=== PATIENT | female | born 1980 | race Caucasian/White ===

== ENCOUNTER → 2016-11-02 | Outpatient (CLI) | payer OTHER ==
--- NOTE | 2016-11-02 09:53 | US ---
EXAMINATION TYPE: US abdomen complete DATE OF EXAM: 11/02/2016 9:41 AM COMPARISON: NONE CLINICAL HISTORY: R10.84 Generalized abdominal pain. EXAM MEASUREMENTS: Liver Length: 15.5 cm Gallbladder Wall: 0.3 cm CBD: 0.2 cm Spleen: 10.2 cm Right Kidney: 12.2 x 4.4 x 4.4 cm Left Kidney: 11.7 x 4.9 x 4.9 cm TECHNOLOGIST IMPRESSION: Pancreas: Tail obscured by overlying bowel gas Liver: wnl Gallbladder: wnl Evidence for sonographic Bynum's sign: No CBD: wnl Spleen: splenule noted measuring 1.3 x 1.2 x 1.3cm in splenic hilum. Right Kidney: inferior pole partially obscure by bowel gas, no hydro or mass identified Left Kidney: superior pole partially obscure by bowel gas, no hydro or mass identified Upper IVC: wnl Abd Aorta: portions visualized wnl, partially obscured by overlying bowel gas The liver is homogenous. The intrahepatic portion of the IVC and visualized abdominal aorta through the iliac bifurcation are within normal limits. There is no evidence of cholelithiasis. Common bile duct is unremarkable. The visualized portions of the pancreas are homogenous. Tail is obscured by o verlying bowel gas on images saved. The spleen is unremarkable. Kidneys are symmetric and free of h ydronephrosis. No renal lesions are seen on images saved. Portions of both kidneys are secured by ov erlying bowel gas. IMPRESSION: No significant finding is seen to account for patient's symptoms.
== END | disposition home or self-care (01) ==
LOC: RADUSWWP 08:59
PROVIDERS: ATTEND Internal Medicine Critical Care Medicine
DX: R10.84 Generalized abdominal pain (principal)
CPT/HCPCS: 76700

== ENCOUNTER → 2017-01-13 | Outpatient (CLI) | payer OTHER ==
--- NOTE | 2017-01-13 08:10 | MR ---
EXAMINATION TYPE: MR lumbar spine wo/w con DATE OF EXAM: 01/13/2017 7:35 AM COMPARISON: 03/24/2012 HISTORY: Low back pain, Prior surgery CONTRAST: The patient was injected with 20 mL intravenous MultiHance gadolinium contrast. Multiplanar, MultiSpin echo imaging of the lumbar spine was performed. L1-L2: Normal disc appearance without desiccation. No herniation, protrusion or disc bulging. No ca nal stenosis is present. Foramina are patent bilaterally. L2-L3: There is evidence of moderate disc desiccation. Posterior disc bulge with annular tear. No fra nk herniation. No evidence for central stenosis. Foramina are patent bilaterally. L3-L4: Moderate to severe disc desiccation. Posterocentral disc herniation with a small extruded comp onent not excluded. There is effacement of the ventral thecal sac with right lateral recess stenosis. There is no evidence for central stenosis. Mild right foraminal encroachment noted. L4-L5: Moderate to severe disc desiccation. Changes of right hemilaminectomy. Small right paracentral disc herniation. Enhancing granulation tissue seen. No evidence for central stenosis. Facet joint ar thropathy with mild bilateral foraminal encroachment. L5-S1: Moderate to severe disc desiccation. There is left paracentral disc herniation seen resulting in left lateral recess stenosis. Left foraminal encroachment identified. No evidence for central orion nosis. Lumbar segments are intact. No paraspinal masses are identified. Conus medullaris has a normal appe arance. IMPRESSION: 1. Multilevel degenerative disc disease. 2. New disc herniations at L3-4, L4-5 and L5-S1.
== END | disposition home or self-care (01) ==
LOC: RADMRIMAIN 06:43
PROVIDERS: ATTEND Orthopaedic Surgery Orthopaedic Surgery of the Spine
DX: M51.26 Other intervertebral disc displacement, lumbar region (principal); M51.36 Other intervertebral disc degeneration, lumbar region; M51.27 Other intervertebral disc displacement, lumbosacral region; M54.16 Radiculopathy, lumbar region
CPT/HCPCS: 72158; A9577

== ENCOUNTER → 2017-04-28 | Outpatient (CLI) | payer OTHER ==
[2017-04-28 10:12] LABS: Cholesterol 197 mg/dL (<200); Glucose 81 mg/dL (74-99); HDL Cholesterol 64 mg/dL (40-60)
[2017-04-28 12:33] LABS: Hemoglobin A1C 5.4 % (4.2-6.1)
== END | disposition home or self-care (01) ==
LOC: LABWHC1 08:41
PROVIDERS: ATTEND Internal Medicine Critical Care Medicine
DX: Z00.00 Encounter for general adult medical examination without abnormal findings (principal)
CPT/HCPCS: 36415; 80061; 82947; 83036

== ENCOUNTER → 2018-02-07 | Outpatient (CLI) | payer OTHER ==
[2018-02-07 12:24] LABS: Basophils % (A) 0 %; Eosinophils # (A) 0.1 k/uL (0-0.7); Eosinophils % (A) 1 %; HCT 40.5 % (34.0-46.0); HGB 13.5 gm/dL (11.4-16.0); Lymphocytes # (A) 2.2 k/uL (1.0-4.8); Lymphocytes % (A) 25 %; MCH 30.1 pg (25.0-35.0); MCHC 33.4 g/dL (31.0-37.0); Mean Platelet Volume 7.6; Monocytes # (A) 0.4 k/uL (0-1.0); Monocytes % (A) 4 %; Neutrophils # (A) 6.1 k/uL (1.3-7.7); Neutrophils % (A) 69 %; Platelet Count 225 k/uL (150-450); RDW 13.7 % (11.5-15.5); WBC 8.9 k/uL (3.8-10.6)
== END | disposition home or self-care (01) ==
LOC: LABWHC1 11:35
PROVIDERS: ATTEND Internal Medicine Critical Care Medicine
DX: R53.1 Weakness (principal)
CPT/HCPCS: 36415; 85025

== ENCOUNTER → 2018-02-15 | Outpatient (CLI) | payer OTHER ==
[2018-02-15 08:27] LABS: Basophils # (A) 0.1 k/uL (0-0.2); Basophils % (A) 1 %; Eosinophils # (A) 0.1 k/uL (0-0.7); Eosinophils % (A) 1 %; HCT 41.2 % (34.0-46.0); HGB 13.5 gm/dL (11.4-16.0); Lymphocytes # (A) 2.2 k/uL (1.0-4.8); Lymphocytes % (A) 29 %; MCH 30.1 pg (25.0-35.0); MCHC 32.8 g/dL (31.0-37.0); MCV 91.7 fL (80.0-100.0); Mean Platelet Volume 7.4; Monocytes # (A) 0.4 k/uL (0-1.0); Monocytes % (A) 5 %; Neutrophils # (A) 4.9 k/uL (1.3-7.7); Neutrophils % (A) 64 %; Platelet Count 221 k/uL (150-450); RBC 4.49 m/uL (3.80-5.40); RDW 13.7 % (11.5-15.5); WBC 7.7 k/uL (3.8-10.6)
[2018-02-15 09:26] LABS: Erythrocyte Sedimentation Rate 20 mm/hr (0-20)
[2018-02-15 09:34] LABS: ALT 31 U/L (9-52); AST 19 U/L (14-36); Albumin 3.9 g/dL (3.5-5.0); Alkaline Phosphatase 51 U/L (38-126); Anion Gap 9 mmol/L; Blood Urea Nitrogen 12 mg/dL (7-17); C Reactive Protein 7.7 mg/L (<10.0); Calcium 9.2 mg/dL (8.4-10.2); Carbon Dioxide 24 mmol/L (22-30); Chloride 106 mmol/L (98-107); Cholesterol 196 mg/dL (<200); Glucose 86 mg/dL (74-99); HDL Cholesterol 70 mg/dL (40-60); LDL Cholesterol,Calculated 104 mg/dL (0-99); Potassium 4.4 mmol/L (3.5-5.1); Sodium 139 mmol/L (137-145); Total Bilirubin 0.2 mg/dL (0.2-1.3); Total Protein 6.5 g/dL (6.3-8.2); Triglycerides 110 mg/dL (<150)
[2018-02-15 09:48] LABS: T4, Free (Free Thyroxine) 1.27 ng/dL (0.78-2.19)
[2018-02-15 20:05] LABS: Hemoglobin A1C 5.4 % (4.0-6.0)
== END | disposition home or self-care (01) ==
LOC: LABWHC1 07:56
PROVIDERS: ATTEND Internal Medicine Critical Care Medicine
DX: Z00.00 Encounter for general adult medical examination without abnormal findings (principal); F41.9 Anxiety disorder, unspecified; M51.9 Unspecified thoracic, thoracolumbar and lumbosacral intervertebral disc disorder; M54.9 Dorsalgia, unspecified; J45.909 Unspecified asthma, uncomplicated
CPT/HCPCS: 36415; 80053; 80061; 82306; 82533; 83036; 84439; 84443; 85025; 85652; 86140

== ENCOUNTER → 2018-02-23 | Outpatient (CLI) | payer OTHER ==
[~2018-02-23] MED LIST: COSYNTROPIN 0.25 MG VIAL IVP NR; SODIUM CHLORIDE 0.9% 500 ML in EMPTY BAG 1 BAG IV PRN
[2018-02-23 08:56] VITALS: BP 117/76; PULSE 76; RESP 16; TEMP 98.4
== END | disposition home or self-care (01) ==
LOC: PROCWHC3 08:29
PROVIDERS: ATTEND Internal Medicine Critical Care Medicine
DX: R79.9 Abnormal finding of blood chemistry, unspecified (principal)
CPT/HCPCS: 82533; 82024; 96374; J0834

== ENCOUNTER → 2018-03-13 | Outpatient (CLI) | payer OTHER | END | disposition home or self-care (01) | LOC: LABWHC1 08:25 | PROVIDERS: ATTEND Internal Medicine Critical Care Medicine | DX: Z32.00 Encounter for pregnancy test, result unknown (principal) | CPT/HCPCS: 36415; 84702 ==

== ENCOUNTER → 2018-08-01 | Outpatient (CLI) | payer OTHER | END | disposition home or self-care (01) | LOC: LABWHC1 08:53 | PROVIDERS: ATTEND Obstetrics & Gynecology | DX: Z36.9 Encounter for antenatal screening, unspecified (principal) | CPT/HCPCS: 36415; 82950 ==

== ENCOUNTER 2018-10-29 15:25 | Inpatient (IN) | payer OTHER ==
[2018-10-29] MEDS ORDERED: CITRIC ACID-SODIUM CITRATE 15 ML CUP PO ONE (16:07)
[2018-10-29] MEDS: LACTATED RINGERS 1,000 ML IV SCH (16:29)
[2018-10-29] MEDS ORDERED: ceFAZolin IN SWFI 2 GM/20 ML SYRINGE IVP ONE (16:30)
[2018-10-29 16:50] LABS: Basophils % (A) 0 %; Eosinophils # (A) 0.1 k/uL (0-0.7); Eosinophils % (A) 1 %; HCT 32.8 % (34.0-46.0); HGB 11.1 gm/dL (11.4-16.0); Lymphocytes % (A) 22 %; MCH 29.2 pg (25.0-35.0); MCHC 33.7 g/dL (31.0-37.0); MCV 86.7 fL (80.0-100.0); Mean Platelet Volume 8.1; Monocytes # (A) 0.4 k/uL (0-1.0); Monocytes % (A) 5 %; Neutrophils # (A) 6.3 k/uL (1.3-7.7); Neutrophils % (A) 71 %; Platelet Count 190 k/uL (150-450); RBC 3.79 m/uL (3.80-5.40); RDW 13.8 % (11.5-15.5)
[2018-10-29 16:53] VITALS: BMI 41.0
[2018-10-29] MEDS ORDERED: METOCLOPRAMIDE 5 MG/ML 2 ML VIAL ONE (17:28)
[2018-10-29] MEDS ORDERED: DEXAMETHASONE SOD PHOS (MDV) 100 MG/10 ML VIAL ONE (17:28)
[2018-10-29] MEDS ORDERED: OXYTOCIN 10 UNIT/ML 1 ML VIAL ONE (17:28)
[2018-10-29] MEDS ORDERED: MORPHINE SULFATE (PF) 0.3 MG/0.3 ML SYR ONE (17:28)
[2018-10-29] MEDS ORDERED: NALBUPHINE 10 MG/ML (1 ML AMP) ONE (17:28)
[2018-10-29] MEDS ORDERED: ONDANSETRON 4 MG/2 ML VIAL ONE (17:28)
[2018-10-29] MEDS ORDERED: METOCLOPRAMIDE 5 MG/ML 2 ML VIAL IVP PRN (18:12)
[2018-10-29] MEDS ORDERED: OXYTOCIN 20 UNITS/1000 ML NS 1,000 ML IV SCH (18:12)
[2018-10-29] MEDS ORDERED: ACETAMINOPHEN IV (For NPO) 1,000 MG in EMPTY BAG 1 BAG IVPB ONE (18:12)
[2018-10-29] MEDS ORDERED: ZOLPIDEM 5 MG TAB PO PRN (18:12)
[2018-10-29] MEDS ORDERED: diphenhydrAMINE 50 MG CAP PO PRN (18:12)
[2018-10-29] MEDS ORDERED: ONDANSETRON 4 MG/2 ML VIAL IVP PRN (18:12)
[2018-10-29] MEDS ORDERED: NALOXONE 0.4 MG/ML 1 ML VIAL IV PRN (18:12)
[2018-10-29] MEDS ORDERED: diphenhydrAMINE 50 MG/ML 1 ML VIAL IVP PRN ×2 (18:12)
[2018-10-29] MEDS ORDERED: ACETAMINOPHEN TAB 325 MG TAB PO PRN (18:12)
--- NOTE | 2018-10-29 18:28 | P.OP ---
Date of Procedure: 10/29/18 Preoperative Diagnosis: IUP at 39 and 1/sevenths weeks, history of 1 desires repeat, spontaneous rupture of membranes, meconium-stained fluid Postoperative Diagnosis: Same Procedure(s) Performed: Repeat section Anesthesia: spinal Surgeon: Lulu Pack Seed Laboratory Assistant #1: Blanca Quispe Estimated Blood Loss (ml): 500 IV fluids (ml): 1,000 Urine output (ml): 900 Pathology: none sent Condition: stable Disposition: observation Indications for Procedure: History of x 1 desires repeat Operative Findings: Normal uterus tubes and ovaries were appreciated English was draining clear yellow urine throughout the procedure Description of Procedure: The patient was prepped and draped in the usual fashion after spinal anesthesia was administered. A Pfannenstiel incision was made and extended of the abdominal cavity without difficulty. The bladder peritoneum was elevated and incised and reflected distally. A 2 cm incision was made in the transverse plane of the lower uterine segment to enter the uterus at which time clear fluid was noted. The incision was extended in both directions using the bandage scissors. The head was encountered within the field and delivered up and through the incision where the nose and mouth were thoroughly suctioned. Remainder of the infant was delivered onto the surgical field where the cord was doubly clamped, cut, and the was passed for resuscitative measures with weight 7-13 and Apgars 8-9 at one and 5 minutes respectively. The placenta was delivered manually, intact, and was grossly normal with a grossly normal three-vessel cord. The uterus was exteriorized and the interior cavity of the uterus swept of any remaining placental and membranous fragments with a laparotomy sponge. The margins of the incision were grasped with Duarte clamps and the incision closed in 2 layers. First layer was a running locking layer of 0 vicryl from margin to margin followed by a second layer of imbricating 0 vicryl from margin to margin. Any small points of bleeding were then made hemostatic with the Bovie. Once hemostasis was achieved , the posterior cul-de-sac was suctioned with a guard and the uterine and ovarian findings are as noted above. The uterus was replaced within the abdominal cavity and the gutters swept of any remaining blood fluid or clot. The incision was again reexamined and hemostasis was noted to be excellent. Any small point of bleeding were made hemostatic with the Bovie. Once hemostasis was achieved the parietal peritoneum was loosely reapproximated. The layer of muscles were examined and made hemostatic with the Bovie. Attention was then turned to the fascia which was closed with 2 running stitches of 0 Vicryl proceeding from the lateral margins to the midpoint. The subcutaneous tissues were irrigated, made hemostatic with the Bovie, and reapproximated with a running stitch of 30 vicryl The skin was reapproximated with 4-0 vicryl. Estimated blood loss for the case was approximately 500 mL. All sponge instrument and needle counts are correct. There were no complications. The patient tolerated the procedure well and proceeded to the recovery room in stable condition. Both mother and are resting comfortably in recovery.
--- NOTE | 2018-10-29 18:28 | P.HPOB ---
History of Present Illness H&P Date: 10/29/18 Chief Complaint: IUP @ 39 1/7 weeks, SROM This is a 38-year-old 2 para 1001 at 39 and one sevenths weeks that presents to labor and delivery with complaints of spontaneous rupture of membranes, meconium-stained fluid. Patient had SROM just before 1 PM today, and felt it appeared to be meconium stained. Patient was scheduled for a repeat section tomorrow 10/30 at noon. Patient is noting good movement denies contractions at this time. Patient has been receiving routine care with Dr. Resendiz, since the first trimester. Her prior done in the past was for arrest of 1st stage of labor, she has a history of asthma which is been well controlled with Qvar and Flonase on blood work her blood type is A+, rubella immune, hepatitis B surface antigen negative, HIV negative, RPR nonreactive, GBS was noted to be positive. Review of Systems Constitutional: Denies chills, Denies fatigue, Denies fever Cardiovascular: Reports leg edema Respiratory: Denies cough, Denies dyspnea Gastrointestinal: Denies constipation, Denies diarrhea, Denies nausea, Denies vomiting Genitourinary: Reports Past Medical History Past Medical History: Asthma, GERD/Reflux Additional Past Medical History / Comment(s): uti's during History of Any Multi-Drug Resistant Organisms: None Reported Past Surgical History: Section Additional Past Surgical History / Comment(s): lumbar laminectomy 2000-dr aparicio Past Anesthesia/Blood Transfusion Reactions: Postoperative Nausea & Vomiting ( PONV) Past Psychological History: Anxiety Smoking Status: Never smoker Past Alcohol Use History: None Reported Past Drug Use History: None Reported - Past Family History Mother Family Medical History: No Reported History Medications and Allergies Home Medications Medication Instructions Recorded Confirmed Type Beclomethasone Dipropionate [Qvar 2 puff INHALATION BID 10/27/18 10/29/18 History 80 mcg] Biotin 5,000 mcg PO DAILY 10/27/18 10/29/18 History Cholecalciferol [Vitamin D3] 1,000 unit PO DAILY 10/27/18 10/29/18 History Cyanocobalamin (Vitamin B-12) 500 mcg PO DAILY 10/27/18 10/29/18 History [Vitamin B-12] Fluticasone Nasal [place] [Flonase 2 spr EA NOSTRIL DAILY 10/27/18 10/29/18 History Nasal [place]] Zcp-Ygab-Jtwni Acid 1 cap PO DAILY 10/27/18 10/29/18 History [-U Capsule (formulary)] Allergies Allergy/AdvReac Type Severity Reaction Status Date / Time adhesive tape Allergy Rash/Hives Verified 10/27/18 10:38 egg Allergy Rash/Hives Verified 02/23/18 08:36 Penicillins Allergy Unknown Verified 02/23/18 08:35 tegaderm Allergy "leaves Uncoded 10/27/18 10:38 whelts" Exam Osteopathic Statement: *. No significant issues noted on an osteopathic structural exam other than those noted in the History and Physical/Consult. Vital Signs Temp Pulse Resp BP Pulse Ox 10/29/18 16:27 97.5 F L 88 18 119/68 10/29/18 16:00 97.5 F L 88 18 119/68 97 Intake and Output 10/29/18 10/29/18 10/29/18 06:59 14:59 22:59 Other: Weight 118.841 kg Targeted physical exam is performed on this date in general this a well- nourished well-developed female in no acute distress. Her breathing is noted to be nonlabored and her lungs are clear to auscultation bilaterally the heart is known to have a regular rate and rhythm her abdomen is noted to be gravid and appropriate for gestational age heart tones were noted to be category 1 and reassuring, on cervical exam per RN 1/thick/high Results Result Diagrams: 10/29/18 16:26 Abnormal Lab Results - Last 24 Hours (Table) 10/29/18 Range/Units 16:26 RBC 3.79 L (3.80-5.40) m/uL Hgb 11.1 L (11.4-16.0) gm/dL Hct 32.8 L (34.0-46.0) % Assessment and Plan (1) Term Current Visit: Yes Status: Acute Code(s): Z34.80 - ENCOUNTER FOR SUPRVSN OF NORMAL , UNSP TRIMESTER SNOMED Code(s): 83123466 (2) Positive GBS test Current Visit: Yes Status: Acute Code(s): B95.1 - STREPTOCOCCUS, GROUP B, CAUSING DISEASES CLASSD ELSWHR SNOMED Code(s): 6326503016568 (3) H/O section Current Visit: Yes Status: Acute Code(s): Z98.891 - HISTORY OF UTERINE SCAR FROM PREVIOUS SURGERY SNOMED Code(s): 062883444
[2018-10-29] MEDS ORDERED: IBUPROFEN IV 800 MG in SODIUM CHLORIDE 0.9% 250 ML IV ONE (18:29)
[2018-10-30] MEDS: diphenhydrAMINE 25 MG CAP PO PRN ×3 (02:27→21:44)
[2018-10-30] MEDS: LACTATED RINGERS 1,000 ML IV SCH ×3 (04:30→20:51)
[2018-10-30 06:40] LABS: Basophils % (A) 0 %; Eosinophils % (A) 0 %; HCT 30.7 % (34.0-46.0); HGB 9.9 gm/dL (11.4-16.0); Lymphocytes # (A) 1.8 k/uL (1.0-4.8); Lymphocytes % (A) 17 %; MCH 28.6 pg (25.0-35.0); MCHC 32.3 g/dL (31.0-37.0); MCV 88.6 fL (80.0-100.0); Mean Platelet Volume 9.7; Monocytes # (A) 0.4 k/uL (0-1.0); Monocytes % (A) 4 %; Neutrophils % (A) 78 %; Platelet Count 147 k/uL (150-450); RBC 3.47 m/uL (3.80-5.40); RDW 13.9 % (11.5-15.5); WBC 10.3 k/uL (3.8-10.6)
[2018-10-30] MEDS: SENNOSIDES-DOCUSATE SODIUM 1 EACH TAB PO SCH ×3 (07:59→21:41)
--- NOTE | 2018-10-30 10:36 | P.PNOBGPC ---
Subjective - Subjective Principal diagnosis: Repeat section Interval history: Septae 1. Reports feeling somewhat dizzy yesterday evening, this is improved this morning. She has been able to void spontaneously without difficulty. She reports her pain is well-controlled that she is feeling itchy. Patient reports: Reports appetite normal, Reports voiding normally, Reports pain well controlled, Reports ambulating normally, Denies dizzy ambulation, Denies nauseated [place]: doing well Objective - Vital Signs Latest vital signs: Vital Signs Temp Pulse Resp BP Pulse Ox 10/30/18 08:00 97.6 F 72 16 92/50 10/30/18 04:00 97.3 F L 64 16 97/53 98 10/29/18 20:17 96.3 F L 50 L 16 113/63 97 10/29/18 19:49 97.9 F 51 L 16 119/59 10/29/18 19:19 97.6 F 55 L 16 109/53 97 10/29/18 19:03 64 18 106/56 97 10/29/18 18:49 67 18 103/55 95 10/29/18 18:34 64 18 108/58 96 10/29/18 18:30 95.9 F L 69 18 108/72 97 10/29/18 16:27 97.5 F L 88 18 119/68 10/29/18 16:00 97.5 F L 88 18 119/68 97 Intake and Output 10/29/18 10/30/18 10/30/18 22:59 06:59 14:59 Intake Total 300 Output Total 800 250 400 Balance -800 50 -400 Intake: Oral 300 Output: Urine 800 250 400 Other: Voiding Method Indwelling Catheter Weight 118.841 kg - Exam Extremities: Present: normal. Absent: edema Abdomen: Present: normal appearance, soft. Absent: tenderness Incision: Present: normal, dry, intact. Absent: erythematous Uterus: Present: normal, firm - Labs Labs: Abnormal Lab Results - Last 24 Hours (Table) 10/29/18 10/30/18 Range/Units 16:26 06:29 RBC 3.79 L 3.47 L (3.80-5.40) m/uL Hgb 11.1 L 9.9 L (11.4-16.0) gm/dL Hct 32.8 L 30.7 L (34.0-46.0) % Plt Count 147 L (150-450) k/uL Neutrophils # 8.0 H (1.3-7.7) k/uL Assessment and Plan (1) Asthma Narrative/Plan: Reports breathing very well. No wheezing and declines consultation with her rand butting machine operator Dr. Sheffield. Current Visit: Yes Status: Acute Code(s): J45.909 - UNSPECIFIED ASTHMA, UNCOMPLICATED SNOMED Code(s): 244413695 (2) H/O section Current Visit: Yes Status: Acute Code(s): Z98.891 - HISTORY OF UTERINE SCAR FROM PREVIOUS SURGERY SNOMED Code(s): 018776497 (3) Positive GBS test Current Visit: Yes Status: Acute Code(s): B95.1 - STREPTOCOCCUS, GROUP B, CAUSING DISEASES CLASSD [facility] SNOMED Code(s): 7115094073515 (4) Term Current Visit: Yes Status: Acute Code(s): Z34.80 - ENCOUNTER FOR SUPRVSN OF NORMAL , UNSP TRIMESTER SNOMED Code(s): 43483225 (5) Meconium in amniotic fluid Current Visit: Yes Status: Acute Code(s): P96.83 - MECONIUM STAINING SNOMED Code(s): 8065598 (6) Spontaneous rupture of membranes Current Visit: Yes Status: Acute Code(s): VNA0584 - SNOMED Code(s): 944479887 (7) Advanced maternal age (AMA) in Current Visit: Yes Status: Acute Code(s): UAG2571 - SNOMED Code(s): 200470838 Plan: Postop day 1 status post repeat low transverse section at 39+ weeks gestation. She is recovering very well. Asthma currently not an issue. Continue routine postoperative care.
--- NOTE | 2018-10-30 11:33 | P.PN ---
Progress Note - Text Progress Note Date: 10/30/18 Postoperative day 1 status post section under spinal anesthesia, and intrathecal morphine given for postoperative analgesia, patient doing well, there is no anesthesia related complications, Patient had no headache, vital signs stable , Assessment and plan= postop day 1 status post , doing well there is no anesthesia related complication.
[2018-10-30] MEDS: IBUPROFEN 600 MG TAB PO PRN ×2 (13:07→21:41)
[2018-10-30] MEDS: FLUTICASONE 110 MCG INHALER INHALATION SCH ×2 (20:50→20:51)
[2018-10-30] MEDS: FLUTICASONE 50MCG/SPRAY NASAL 16GM EA NOSTRIL SCH (20:51)
[2018-10-30] MEDS: PRENATAL VIT-IRON-FOLIC ACID 1 EACH CAP PO SCH (20:52)
[2018-10-31] MEDS: IBUPROFEN 600 MG TAB PO PRN ×3 (04:15→15:47)
[2018-10-31] MEDS: SENNOSIDES-DOCUSATE SODIUM 1 EACH TAB PO SCH (08:18)
--- NOTE | 2018-10-31 08:38 | P.DS ---
Providers Date of admission: 10/29/18 16:09 Expected date of discharge: 10/31/18 Attending physician: Anna Marie Resendiz Primary care physician: Stated None - Discharge Diagnosis(es) (1) Asthma Current Visit: Yes Status: Acute (2) H/O section Current Visit: Yes Status: Acute (3) Positive GBS test Current Visit: Yes Status: Acute (4) Term Current Visit: Yes Status: Acute (5) Meconium in amniotic fluid Current Visit: Yes Status: Acute (6) Spontaneous rupture of membranes Current Visit: Yes Status: Acute (7) Advanced maternal age (AMA) in Current Visit: Yes Status: Acute Hospital Course: This is a 38 year old 3 now para 2 woman who presented at 39+ weeks gestation with spontaneous rupture of membranes, not in labor. She has a previous low transverse section and was planning a repeat . She was admitted and rupture membranes was confirmed, meconium-stained fluid. status was reassuring. She went to the operating room where she underwent an unremarkable repeat low transverse section. Findings at the time of surgery were significant for a liveborn female infant weighing 7 lbs. 9 oz. No her the surgeon's observation and the nursing observation the patient did have some bruising of her inner thighs as well as upper arms. Her postoperative course was unremarkable. By postoperative day #1 her pain was well-controlled with oral pain medications and she was voiding without difficulty. Her diet was advanced slowly however she was able to tolerate a general diet by the evening of postoperative day #1. She had passed flatus. Her postoperative hemoglobin was 9.9. By postoperative day #2 she continued to do well, passing flatus and tolerating a general diet. Her incision appeared well healing and she had minimal lochia. Is documented in the record at 32 weeks the patient did have bruising and bite bob of the gravid abdomen. At that time the patient shared that it was consensual affectionate activity. No further bruising or signs of injury were observed by me at that time nor for the remainder of the . However nursing notes and the surgeon of record did note some bruising of the inner thighs and upper arms also possibly consistent with biting or injury. Upon my discussion with the patient in the presence of the father of the baby she reports these bruising were from "stuff around the house" and "sledding with her older daughter". I had a discussion with both the patient and the father of the baby regarding the appropriate demonstrations of affection not including biting. I spoke with them about close follow-up in the outpatient setting of both her infant and her older child. 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 Procedures: Repeat low transverse section Patient Condition at Discharge: Good Plan - Discharge Summary New Discharge Prescriptions: No Action Zrm-High-Ywweh Acid [-U Capsule (formulary)] 1 cap PO DAILY Fluticasone Nasal [place] [Flonase Nasal [place]] 2 spr EA NOSTRIL DAILY Cyanocobalamin (Vitamin B-12) [Vitamin B-12] 500 mcg PO DAILY Cholecalciferol [Vitamin D3] 1,000 unit PO DAILY Beclomethasone Dipropionate [Qvar 80 mcg] 2 puff INHALATION BID Biotin 5,000 mcg PO DAILY Discharge Medication List Beclomethasone Dipropionate [Qvar 80 mcg] 2 puff INHALATION BID 10/27/18 [ History] Biotin 5,000 mcg PO DAILY 10/27/18 [History] Cholecalciferol [Vitamin D3] 1,000 unit PO DAILY 10/27/18 [History] Cyanocobalamin (Vitamin B-12) [Vitamin B-12] 500 mcg PO DAILY 10/27/18 [History] Fluticasone Nasal [place] [Flonase Nasal [place]] 2 spr EA NOSTRIL DAILY 10/27/18 [ History] Wos-Blyy-Gimkr Acid [-U Capsule (formulary)] 1 cap PO DAILY 05/07 [History] Follow up Appointment(s)/Referral(s): Anna Marie Resendiz MD [STAFF PHYSICIAN] - 2 Weeks Activity/Diet/Wound Care/Special Instructions: Follow-up in the office to's weeks postoperatively or sooner with any concerning signs or symptoms. May use oywh-cww-czognhl ibuprofen 600 mg every 6 hours and or extra strength Tylenol every 6-8 hours as needed. Contact the office with any concerning signs or symptoms including heavy vaginal bleeding, foul vaginal discharge, redness or drainage of her incision, severe abdominal or pelvic pain, inability to have bowel movement, fever greater than 100.5, redness or swelling of the lower extremities.
[2018-10-31 09:17] VITALS: RESP 15
[2018-10-31] MEDS: FLUTICASONE 110 MCG INHALER INHALATION SCH (15:48)
[2018-10-31] MEDS: PRENATAL VIT-IRON-FOLIC ACID 1 EACH CAP PO SCH (15:48)
[2018-10-31] MEDS: FLUTICASONE 50MCG/SPRAY NASAL 16GM EA NOSTRIL SCH (15:48)
[2018-10-31 16:44] VITALS: BP 145/78; PULSE 69; TEMP 98.8
== END 2018-10-31 18:23 | disposition home or self-care (01) | DRG 788 ==
LOC: FBPOP 15:25 → 4FBP 16:09
PROVIDERS: ADMIT Obstetrics & Gynecology Obstetrics; ATTEND Obstetrics & Gynecology
PROC: 10D00Z1 Extraction of Products of Conception, Low, Open Approach (ICD-10-PCS; principal; 2018-10-29 17:28)
DX: O34.211 Maternal care for low transverse scar from previous cesarean delivery (principal); O77.0 Labor and delivery complicated by meconium in amniotic fluid; O99.344 Other mental disorders complicating childbirth; F41.9 Anxiety disorder, unspecified; O99.52 Diseases of the respiratory system complicating childbirth; J45.909 Unspecified asthma, uncomplicated; O99.62 Diseases of the digestive system complicating childbirth; K21.9 Gastro-esophageal reflux disease without esophagitis; O99.824 Streptococcus B carrier state complicating childbirth; O75.89 Other specified complications of labor and delivery; R42 Dizziness and giddiness; Z37.0 Single live birth; Z3A.39 39 weeks gestation of pregnancy; Z79.899 Other long term (current) drug therapy; Z91.012 Allergy to eggs; Z88.0 Allergy status to penicillin; Z88.8 Allergy status to other drugs, medicaments and biological substances; Z91.048 Other nonmedicinal substance allergy status
CPT/HCPCS: 59025; 85025; 86850; 86900; 86901; 99213

== ENCOUNTER → 2019-04-02 | Outpatient (CLI) | payer MEDICAID ==
--- NOTE | 2019-04-02 17:34 | MR ---
EXAMINATION TYPE: MR knee RT wo con DATE OF EXAM: 04/02/2019 COMPARISON: Plain film 03/26/2019 HISTORY: Pain in right knee TECHNIQUE: Multiplanar, multisequence imaging of the right knee is performed without IV contrast. FINDINGS: MEDIAL MENISCUS: Posterior horn of the medial meniscus shows stellate and linear increased signal whi ch extends to the articular surface LATERAL MENISCUS: Anterior and posterior horns are intact without tear. CRUCIATE LIGAMENTS: The anterior and posterior cruciate ligaments are intact and unremarkable. COLLATERAL LIGAMENTS: The medial collateral ligament and lateral collateral ligament complex are inta ct and unremarkable. EXTENSOR MECHANISM: Visualized quadriceps and patellar tendons are intact. EFFUSION: Minimal suprapatellar joint effusion POPLITEAL CYST: No popliteal/cesar cyst. 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 OTHER: Some minimal subcutaneous edema present in the prepatellar location IMPRESSION: Tear of the posterior horn of the medial meniscus.
== END | disposition home or self-care (01) ==
LOC: RADMRIMAIN 09:08
PROVIDERS: ATTEND Orthopaedic Surgery
DX: S83.241A Other tear of medial meniscus, current injury, right knee, initial encounter (principal)

== ENCOUNTER → 2019-04-13 | Outpatient (CLI) | payer MEDICAID ==
--- NOTE | 2019-04-13 10:19 | MM ---
Reason for exam: clinical finding. History: Patient had first child at age 35. Family history of breast cancer in grandmother. Taking hormonal contraceptives for 3 months. Indicated problem(s): palpable abnormality in the left breast. Physical Findings: Nurse Summary: 0.5 x 1cm nodule in the left breast at 8 o'clock (nurse ts). MG 3D Diag Mammo W/Cad MELITON Bilateral CC and MLO view(s) were taken. The breast tissue is heterogeneously dense. This may lower the sensitivity of mammography. No suspicious abnormality on the right. Left retroareolar distortion beneth the palpable BB marker on MLO only improved but subtly seen on MLO 3D without sonographic correlate or correlation on CC. 6 month follow up recommended. These results were verbally communicated with the patient and result sheet given to the patient on 04/13/19. ASSESSMENT: Incomplete: need additional imaging evaluation, BI-RAD 0 RECOMMENDATION: Ultrasound and surgical consultation of the left breast. (bloody nipple discharge) Patient request's to make her own appointment with Dr. Glasgow. PRELIMINARY REPORT CALLED AND FAXED TO DR. GLASGOW ON 04/13/19.
--- NOTE | 2019-04-13 10:24 | USB ---
Reason for exam: additional evaluation requested from abnormal screening. History: Patient had first child at age 35. Family history of breast cancer in grandmother. Taking hormonal contraceptives for 3 months. US Breast Limited LT Left limited breast ultrasound including focal area of concern, retroareolar and axilla demonstrates a 0.2 x 0.2 x 0.3cm cystic lesion too small to characterize at 9 o'clock within a 1.2cm area of dense tissue. These results were verbally communicated with the patient and result sheet given to the patient on 04/13/19. ASSESSMENT: Probably benign, BI-RAD 3 RECOMMENDATION: Surgical consultation of the left breast. Patient request's to make her own appointment with Dr. Glasgow. PRELIMINARY REPORT CALLED AND FAXED TO DR. GLASGOW ON 04/13/19. Follow-up diagnostic mammogram of the left breast in 6 months.
== END | disposition home or self-care (01) ==
LOC: RADMAMWWP 07:26
PROVIDERS: ATTEND Internal Medicine Critical Care Medicine
DX: R92.8 Other abnormal and inconclusive findings on diagnostic imaging of breast (principal); N63.20 Unspecified lump in the left breast, unspecified quadrant
CPT/HCPCS: 77062; 77066

== ENCOUNTER → 2019-04-27 | Outpatient (CLI) | payer MEDICAID ==
[2019-04-27 10:58] LABS: Basophils % (A) 0 %; Eosinophils # (A) 0.1 k/uL (0-0.7); Eosinophils % (A) 1 %; HCT 41.1 % (34.0-46.0); HGB 13.7 gm/dL (11.4-16.0); Lymphocytes % (A) 23 %; MCH 29.5 pg (25.0-35.0); MCHC 33.4 g/dL (31.0-37.0); MCV 88.3 fL (80.0-100.0); Mean Platelet Volume 7.8; Monocytes # (A) 0.4 k/uL (0-1.0); Monocytes % (A) 4 %; Neutrophils # (A) 6.1 k/uL (1.3-7.7); Neutrophils % (A) 69 %; Platelet Count 235 k/uL (150-450); RBC 4.66 m/uL (3.80-5.40); RDW 14.1 % (11.5-15.5); WBC 8.8 k/uL (3.8-10.6)
== END | disposition home or self-care (01) ==
LOC: LABPAT 10:36
PROVIDERS: ATTEND Orthopaedic Surgery
DX: Z01.812 Encounter for preprocedural laboratory examination (principal); M23.91 Unspecified internal derangement of right knee
CPT/HCPCS: 84702; 85025

== ENCOUNTER → 2019-07-04 | Outpatient (CLI) | payer MEDICAID ==
[2019-07-04 09:58] LABS: Basophils # (A) 0.1 k/uL (0-0.2); Basophils % (A) 1 %; Eosinophils # (A) 0.1 k/uL (0-0.7); Eosinophils % (A) 1 %; HCT 39.7 % (34.0-46.0); HGB 12.7 gm/dL (11.4-16.0); Lymphocytes % (A) 30 %; MCH 28.8 pg (25.0-35.0); MCHC 31.9 g/dL (31.0-37.0); MCV 90.1 fL (80.0-100.0); Mean Platelet Volume 7.3; Monocytes # (A) 0.3 k/uL (0-1.0); Monocytes % (A) 5 %; Neutrophils # (A) 4.1 k/uL (1.3-7.7); Neutrophils % (A) 61 %; Platelet Count 230 k/uL (150-450); RBC 4.41 m/uL (3.80-5.40); RDW 13.6 % (11.5-15.5); WBC 6.7 k/uL (3.8-10.6)
== END | disposition home or self-care (01) ==
LOC: LABPAT 09:14
PROVIDERS: ATTEND Orthopaedic Surgery
DX: Z01.812 Encounter for preprocedural laboratory examination (principal); M23.91 Unspecified internal derangement of right knee
CPT/HCPCS: 85025

== ENCOUNTER 2019-07-06 09:01 | Day surgery (SDC) | payer MEDICAID ==
[2019-07-04 12:54] VITALS: BMI 41.5
--- NOTE | 2019-07-05 10:31 | HP ---
HISTORY AND PHYSICAL CHIEF COMPLAINT: Right knee pain. 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 She notes this started when she was . She notes anterior medial pain along with swelling. She has a difficult time with prolonged sitting. She has been taking ibuprofen and notes intermittent giving way and notes that she has been limping. PAST MEDICAL HISTORY: Significant for asthma. PAST SURGICAL HISTORY: Significant for lumbar laminectomy and section. CURRENT MEDICATIONS: Ibuprofen. ALLERGIES: She notes allergies to EGGS. FAMILY HISTORY: Significant for cancer and diabetes. SOCIAL HISTORY: Negative for current tobacco or alcohol use. REVIEW OF SYSTEMS: Sixteen-point review of systems otherwise reviewed and is noncontributory. PHYSICAL EXAMINATION: On examination, the patient is approximately 5 feet 7 inches, 260 pounds of endomorphic habitus. HEENT exam is nonfocal. Neck is supple. She has painless passive motion of the right hip. Straight leg raise is negative. Active motion right knee -6 to 115 degrees of flexion. She has a mild effusion. She is tender about the medial joint line. Collaterals are stable, Jose is negative, Koko's elicits medial pain. MRI report for the right knee from 04/02/2019 shows evidence of a posterior medial meniscal tear. IMPRESSION: 1. Right knee symptomatic medial meniscal tear. 2. Obesity. RECOMMENDATIONS: I talked to the patient at length regarding her condition along with treatment options. At this point, she is having significant pain and mechanical symptoms that limit her normal function and activities. After thorough discussion, she opts to proceed with surgery. We will plan to proceed with arthroscopic evaluation of the right knee with probable partial medial meniscectomy. Risks and benefits were discussed at length in layman's terms. We will likely perform that as an outpatient procedure. MMODL / IJN: [id number] /
[~2019-07-06 09:01] MED LIST changes: -COSYNTROPIN 0.25 MG VIAL IVP NR; +DEXAMETHASONE SOD PHOSPHATE 10 MG/ML 1 ML VIAL IV ONE; +HYDROmorphone 0.5 MG/0.5 ML SYRINGE IVP PRN; +LACTATED RINGERS 1,000 ML IV SCH; +LIDOCAINE 1% 20 ML VIAL (10MG/ML) FOR IV START INTRADERMA PRN; +MIDAZOLAM 2 MG/2 ML VIAL IV PRN; +ONDANSETRON 4 MG/2 ML VIAL IVP ONE; +ONDANSETRON 4 MG/2 ML VIAL IVP PRN; -SODIUM CHLORIDE 0.9% 500 ML in EMPTY BAG 1 BAG IV PRN; +ceFAZolin 3 GM in SODIUM CHLORIDE 0.9% 100 ML IVPB ONE
[2019-07-06] MEDS ORDERED: SCOPOLAMINE 1.5MG/72HR PATCH TRANSDERM ONE (10:03)
[2019-07-06] MEDS ORDERED: SUCCINYLCHOLINE CHLORIDE 100 MG/5 ML SYR IV ONE (10:43)
[2019-07-06] MEDS ORDERED: LIDOCAINE 1% INJ 10MG/ML (20 ML MDV) ONE (10:43)
[2019-07-06] MEDS ORDERED: MIDAZOLAM 2 MG/2 ML VIAL ONE (10:43)
[2019-07-06] MEDS ORDERED: PROPOFOL 10 MG/ML 20 ML VIAL IV ONE (10:43)
[2019-07-06] MEDS ORDERED: fentaNYL (PF) 50 MCG/ML 2 ML AMP ONE (10:43)
[2019-07-06] MEDS ORDERED: ceFAZolin 1,000 MG VIAL IVPB ONE (10:49)
--- NOTE | 2019-07-06 11:30 | P.OP ---
Date of Procedure: 07/06/19 Preoperative Diagnosis: Right knee internal derangement Postoperative Diagnosis: Right knee anterior medial meniscal tear Procedure(s) Performed: Right knee arthroscopic partial medial meniscectomy Anesthesia: FERNA Surgeon: Tam Carrillo Estimated Blood Loss (ml): 10 Pathology: none sent Condition: stable Disposition: PACU Indications for Procedure: The patient's a 39-year-old female who presents with persistent/progressive right knee pain despite conservative treatment. A discussion of the risks and benefits of operative intervention versus continued conservative measures was made with patient. She opted to proceed with surgery. Operative risks to include infection, neurovascular injury, development of blood clots, possible incomplete resolution of symptoms, possible worsening symptoms and need for subsequent procedures was discussed. Informed consent was obtained. Operative Findings: As below Description of Procedure: The patient was brought to the operating room, and after induction of general anesthesia examined the right knee. Collaterals were stable, Jose was negative, and posterior drawer was negative. The right lower extremity was prepped and draped in a normal fashion. A lateral portal was made through a 5 mm vertical skin incision lateral to the patella tendon above the joint line. Diagnostic arthroscopy was performed. On inspection of the medial compartment , the posterior horn appeared to be stable and intact. There was an anterior horn tear in the white -white junction . This was debrided back to stable base with a motorized shaver. On inspection of the notch, the anterior cruciate ligament appeared to be intact. On inspection of the lateral compartment , no significant cartilage or meniscal pathology was noted. On inspection of the patellofemoral articulation, there is no significant cartilage abnormality. The gutters were clear debris. The knee was then thoroughly irrigated. The portals were closed witsimple 3-0 nylon sutures. A sterile dressing was applied in addition to a compression stocking. The patient was awoken from general anesthesia and transferred to recovery room in good condition. Blood loss was estimated at 10 mL. No complications were incurred.
[2019-07-06 11:33] VITALS: TEMP 96.9
[2019-07-06 12:17] VITALS: RESP 16
[2019-07-06] MEDS ORDERED: HYDROcodone/APAP 5-325MG 1 EACH TAB PO ONE (12:32)
[2019-07-06 13:30] VITALS: BP 104/2; PULSE 60
--- NOTE | 2019-07-11 10:49 | CDI ---
Outpatient Documentation Clarification Form Date: 07.11.19 CDS/Weapons Engineer Name: Shanon Samuel Phone: If any questions, call Marisa [facility] M[facility] Floor at [phone] Patient Name: Blanche Randle Admit Date: 07.06.19 Discharge Date: 07.06.19 ATTENTION: The [facility] Coding Staff appreciate your assistance in clarifying documentation. Please respond to the clarification below the line at the bottom and electronically sign. The [facility] Coding staff will review the response and follow-up if needed. Please note: Queries are made part of the Legal Health Record. If you have any questions, please contact the Molder Floor. Dear Dr. Carrillo Please specify whether the meniscus tear was an acute injury or remote or recurrent. Thank you for your consideration. It was remote. MTDD
== END 2019-07-06 13:32 | disposition home or self-care (01) ==
LOC: OR 09:01
PROVIDERS: ATTEND Orthopaedic Surgery
DX: M23.211 Derangement of anterior horn of medial meniscus due to old tear or injury, right knee (principal); E66.9 Obesity, unspecified; J45.909 Unspecified asthma, uncomplicated; F41.9 Anxiety disorder, unspecified; M19.90 Unspecified osteoarthritis, unspecified site; M48.00 Spinal stenosis, site unspecified; K21.9 Gastro-esophageal reflux disease without esophagitis; Z68.41 Body mass index [BMI] 40.0-44.9, adult; Z98.890 Other specified postprocedural states; Z79.1 Long term (current) use of non-steroidal anti-inflammatories (NSAID); Z91.012 Allergy to eggs; Z91.048 Other nonmedicinal substance allergy status; Z88.0 Allergy status to penicillin; Z79.3 Long term (current) use of hormonal contraceptives; Z79.899 Other long term (current) drug therapy; Z80.9 Family history of malignant neoplasm, unspecified; Z83.3 Family history of diabetes mellitus
CPT/HCPCS: 29881; 81025; J2250; J1100; J2405; J0690; J2001; J3010; J0330; J2704; J1170

== ENCOUNTER → 2019-10-19 | Outpatient (CLI) | payer MEDICAID ==
--- NOTE | 2019-10-19 10:07 | MM ---
Reason for exam: follow-up at short interval from prior study. Last mammogram was performed 6 months ago. History: Patient had first child at age 35. Family history of breast cancer in grandmother. Taking hormonal contraceptives for 9 months. Physical Findings: A clinical breast exam by your physician is recommended on an annual basis and results should be correlated with mammographic findings. MG 3D Diag Mammo W/Cad MELITON Bilateral CC and MLO view(s) were taken. Prior study comparison: April 13, 2019, bilateral MG 3d diag mammo w/cad MELITON. The breast tissue is heterogeneously dense. This may lower the sensitivity of mammography. No suspicious abnormality. These results were verbally communicated with the patient and result sheet given to the patient on 10/19/19. ASSESSMENT: Negative, BI-RAD 1 RECOMMENDATION: Routine screening mammogram of both breasts in 1 year.
== END | disposition home or self-care (01) ==
LOC: RADMAMWWP 07:14
PROVIDERS: ATTEND Internal Medicine Critical Care Medicine
DX: N63.10 Unspecified lump in the right breast, unspecified quadrant (principal); N63.20 Unspecified lump in the left breast, unspecified quadrant
CPT/HCPCS: 77062; 77066

== ENCOUNTER → 2019-10-25 | Outpatient (CLI) | payer MEDICAID ==
[2019-10-25 11:18] LABS: Basophils # (A) 0.1 k/uL (0-0.2); Basophils % (A) 1 %; Eosinophils # (A) 0.1 k/uL (0-0.7); Eosinophils % (A) 1 %; HCT 44.5 % (34.0-46.0); HGB 14.4 gm/dL (11.4-16.0); Lymphocytes # (A) 2.2 k/uL (1.0-4.8); Lymphocytes % (A) 21 %; MCH 29.8 pg (25.0-35.0); MCHC 32.3 g/dL (31.0-37.0); MCV 92.4 fL (80.0-100.0); Mean Platelet Volume 8.4; Monocytes # (A) 0.3 k/uL (0-1.0); Monocytes % (A) 3 %; Neutrophils # (A) 7.7 k/uL (1.3-7.7); Neutrophils % (A) 72 %; Platelet Count 293 k/uL (150-450); RBC 4.82 m/uL (3.80-5.40); RDW 13.5 % (11.5-15.5); WBC 10.7 k/uL (3.8-10.6)
== END | disposition home or self-care (01) ==
LOC: LABPAT 10:53
PROVIDERS: ATTEND Obstetrics & Gynecology
DX: Z01.812 Encounter for preprocedural laboratory examination (principal); N93.8 Other specified abnormal uterine and vaginal bleeding
CPT/HCPCS: 85025

== ENCOUNTER 2020-08-22 06:16 | Day surgery (SDC) | payer MEDICAID ==
[2020-08-20 15:21] VITALS: BMI 37.9
[~2020-08-22 06:16] MED LIST changes: +ACETAMINOPHEN TAB 500 MG TAB PO PRN; -DEXAMETHASONE SOD PHOSPHATE 10 MG/ML 1 ML VIAL IV ONE; +DEXAMETHASONE SOD PHOSPHATE 4 MG/ML 1 ML VIAL IV ONE; +HEPARIN SODIUM,PORCINE 5,000 UNIT/ML 1 ML VIAL SQ PRN; -HYDROmorphone 0.5 MG/0.5 ML SYRINGE IVP PRN; +LIDOCAINE 1% (10MG/ML) FOR IV START INTRADERMA PRN; -LIDOCAINE 1% 20 ML VIAL (10MG/ML) FOR IV START INTRADERMA PRN; -MIDAZOLAM 2 MG/2 ML VIAL IV PRN; -ONDANSETRON 4 MG/2 ML VIAL IVP ONE; -ONDANSETRON 4 MG/2 ML VIAL IVP PRN; -ceFAZolin 3 GM in SODIUM CHLORIDE 0.9% 100 ML IVPB ONE
[2020-08-22] MEDS ORDERED: ONDANSETRON 4 MG/2 ML VIAL ONE (06:33)
[2020-08-22] MEDS ORDERED: LACTATED RINGERS 1,000 ML IV ONE (06:44)
[2020-08-22] MEDS ORDERED: SCOPOLAMINE 1.5MG/72HR PATCH TRANSDERM ONE (07:05)
[2020-08-22] MEDS ORDERED: MIDAZOLAM 2 MG/2 ML VIAL IVP ONE (07:05)
[2020-08-22] MEDS ORDERED: BUPIVACAINE (PF) 0.25% 30 ML VIAL SQ ONE ×2 (07:41→08:24)
[2020-08-22] MEDS ORDERED: LIDOCAINE 1% INJ 10MG/ML (20 ML MDV) ONE (07:49)
[2020-08-22] MEDS ORDERED: SUCCINYLCHOLINE CHLORIDE 100 MG/5 ML SYR IV ONE (07:49)
[2020-08-22] MEDS ORDERED: fentaNYL (PF) 50 MCG/ML 2 ML AMP ONE (07:49)
[2020-08-22] MEDS ORDERED: PROPOFOL 10 MG/ML 20 ML VIAL IV ONE (07:49)
[2020-08-22] MEDS ORDERED: MIDAZOLAM 2 MG/2 ML VIAL ONE (07:49)
[2020-08-22] MEDS ORDERED: NALOXONE 0.4 MG/ML 1 ML VIAL IV PRN (08:00)
[2020-08-22] MEDS ORDERED: HYDROmorphone 0.5 MG/0.5 ML SYRINGE IVP PRN (08:00)
[2020-08-22] MEDS ORDERED: ACETAMINOPHEN TAB 325 MG TAB PO PRN (08:00)
--- NOTE | 2020-08-22 08:43 | P.OP ---
Date of Procedure: 08/22/20 Procedure(s) Performed: PREOPERATIVE DIAGNOSIS: Periductal mastitis POSTOPERATIVE DIAGNOSIS: Same PROCEDURE: Right breast excisional biopsy of periductal mastitis SURGEON: Myah EBL: Minimal ANESTHESIA: General COMPLICATIONS: None OPERATIVE PROCEDURE: Patient was placed on the operating room table in the doe pine position. The patient's breast was prepped and draped in usual sterile fashion. A curvilinear incision was made along the areola including the fistulous opening. Using the probe I was able to follow the fistula into the subareolar space immediately behind the nipple. The breast tissue immediately behind the nipple was excised and sent to pathology. No additional abnormal tissue was encountered. No purulence or abscess cavities were found. The area was copiously irrigated with saline. We also localized with Marcaine. The subcutaneous tissues were closed using 3-0 Vicryl sutures. The skin was closed using a 3 interrupted 4-0 Monocryl sutures. Sterile dressings were applied. DISPOSITION: Stable to recovery room
[2020-08-22 08:55] VITALS: RESP 16; TEMP 98
[2020-08-22 09:32] VITALS: BP 100/60; PULSE 62
== END 2020-08-22 09:45 ==
LOC: OR 06:16
PROVIDERS: ATTEND Surgery
DX: N61.0 Mastitis without abscess (principal); N60.31 Fibrosclerosis of right breast; J45.909 Unspecified asthma, uncomplicated; Z98.891 History of uterine scar from previous surgery; Z98.890 Other specified postprocedural states; Z79.51 Long term (current) use of inhaled steroids; Z88.0 Allergy status to penicillin
CPT/HCPCS: 81025; 88304; 19120; J2250; J1644; J1100; J0690; J2405; J2001; J3010; J0330; J2704

== ENCOUNTER → 2020-12-03 | Outpatient (CLI) | payer MEDICAID ==
--- NOTE | 2020-12-04 09:04 | MM ---
Reason for exam: additional evaluation requested from prior study. Last mammogram was performed 1 year and 2 months ago. History: Patient had first child at age 35. Family history of breast cancer in grandmother. Taking hormonal contraceptives for 9 months. Physical Findings: Nurse Summary: 0.5cm nodule in the right breast at 3 o'clock (nurse johnathon). MG 3D Diag Mammo W/Cad MELITON Bilateral CC and MLO view(s) were taken. Prior study comparison: October 19, 2019, bilateral MG 3d diag mammo w/cad MELITON. April 13, 2019, bilateral MG 3d diag mammo w/cad MELITON. The breast tissue is heterogeneously dense. This may lower the sensitivity of mammography. These results were verbally communicated with the patient and result sheet given to the patient on 12/03/20. ASSESSMENT: Benign, BI-RAD 2 RECOMMENDATION: Routine screening mammogram of both breasts in 1 year. Manage on a clinical basis with regard to resolving mastitis.
== END | disposition home or self-care (01) ==
LOC: RADMAMWWP 14:24
PROVIDERS: ATTEND Surgery
DX: R92.8 Other abnormal and inconclusive findings on diagnostic imaging of breast (principal)
CPT/HCPCS: 77062; 77066

== ENCOUNTER 2021-05-19 08:07 | Emergency (ER) | payer MEDICAID ==
[2021-05-19 08:22] VITALS: RESP 18
[2021-05-19] MEDS ORDERED: SODIUM CHLORIDE 0.9% 1,000 ML IV STA (08:53)
[2021-05-19 09:09] LABS: Basophils # (A) 0.1 k/uL (0-0.2); Basophils % (A) 1 %; Eosinophils # (A) 0.1 k/uL (0-0.7); Eosinophils % (A) 1 %; HGB 14.5 gm/dL (11.4-16.0); Lymphocytes % (A) 25 %; MCH 30.2 pg (25.0-35.0); MCHC 34.4 g/dL (31.0-37.0); MCV 87.7 fL (80.0-100.0); Mean Platelet Volume 7.3; Monocytes # (A) 0.6 k/uL (0-1.0); Monocytes % (A) 5 %; Neutrophils # (A) 8.1 k/uL (1.3-7.7); Neutrophils % (A) 67 %; Platelet Count 311 k/uL (150-450); RBC 4.79 m/uL (3.80-5.40); RDW 13.7 % (11.5-15.5); WBC 12.1 k/uL (3.8-10.6)
--- NOTE | 2021-05-19 09:16 | XR ---
EXAMINATION TYPE: XR chest 2V DATE OF EXAM: 05/19/2021 COMPARISON: NONE HISTORY: Cough TECHNIQUE: Frontal and lateral views of the chest are obtained. FINDINGS: There is no focal air space opacity, pleural effusion, or pneumothorax seen. The cardiac silhouette size is within normal limits. The osseous structures are intact. IMPRESSION: No acute cardiopulmonary process.
--- NOTE | 2021-05-19 09:21 | ED ---
General Adult HPI - General Chief complaint: Upper Respiratory Infection Stated complaint: pneumonia, worsen symptoms Time Seen by Provider: 05/19/21 08:28 Source: patient Mode of arrival: ambulatory Limitations: no limitations - History of Present Illness Initial comments: 40-year-old female with a past medical history of asthma, GERD presents to the e mergency room for a chief complaint of cough. Patient reports she has had a cough for a week and a half now. States that she called her history professor and was given azithromycin and a Medrol Dosepak. She states that azithromycin normally does not work for her pneumonia and a Medrol Dosepak is usually too low of dosing. Patient called for another appointment in the stated she needed to get a rapid Covid test. Patient could not get a apical test as there is apparently a shortage. Therefore she presented here to the emergency room. Patient states that she has not been short of breath but her cough has been productive for past 2 days. No fevers.Patient has no other complaints at this time including shortness of breath, chest pain, abdominal pain, nausea or vomiting, headache, or visual changes. - Related Data Home Medications Medication Instructions Recorded Confirmed Montelukast Sodium [Singulair] 10 mg PO HS 07/04/19 05/19/21 Pnv No.95/Ferrous Fum/Folic AC 1 tab PO DAILY 08/20/20 05/19/21 [ Multivitamin Tablet] RX: Zinc 50 mg PO DAILY 08/20/20 05/19/21 Albuterol Inhaler [Ventolin Hfa 2 puff INHALATION RT-Q4H PRN 05/19/21 05/19/21 Inhaler] Ascorbic Acid [Vitamin C] 500 mg PO BID 05/19/21 05/19/21 Cholecalciferol [Vitamin D3 (25 50 mcg PO DAILY 05/19/21 05/19/21 Mcg = 1000 Iu)] Fluticasone Furoate [Arnuity 1 puff INHALATION RT-BID 05/19/21 05/19/21 Ellipta] Loratadine [Claritin] 10 mg PO DAILY 05/19/21 05/19/21 guaiFENesin [Mucinex] 1,200 mg PO BID PRN 05/19/21 05/19/21 Previous Rx's Medication Instructions Recorded RX: predniSONE 50 mg PO DAILY #5 tablet 05/19/21 Allergies Allergy/AdvReac Type Severity Reaction Status Date / Time adhesive tape Allergy Rash/Hives Verified 05/19/21 09:31 egg Allergy Rash/Hives Verified 05/19/21 09:31 Penicillins Allergy Unknown Verified 05/19/21 09:31 tegaderm Allergy "leaves Uncoded 05/19/21 08:22 whelts" Review of Systems ROS Statement: Those systems with pertinent positive or pertinent negative responses have been documented in the HPI. ROS Other: All systems not noted in ROS Statement are negative. Past Medical History Past Medical History: Asthma, GERD/Reflux Additional Past Medical History / Comment(s): uti's during . dysmenorrhagia. BPV History of Any Multi-Drug Resistant Organisms: None Reported Past Surgical History: Back Surgery, Section, Orthopedic Surgery Additional Past Surgical History / Comment(s): lumbar laminectomy 2000-dr aparicio. rt knee arthroscopy with meiscectomy Past Anesthesia/Blood Transfusion Reactions: Previous Problems w/ Anesthesia, Postoperative Nausea & Vomiting (PONV) Additional Past Anesthesia/Blood Transfusion Reaction / Comment(s): bradycardic after surgery Past Psychological History: Anxiety Smoking Status: Former smoker Past Alcohol Use History: None Reported Past Drug Use History: None Reported - Past Family History Mother Family Medical History: No Reported History General Exam Limitations: no limitations General appearance: alert, in no apparent distress Head exam: Present: atraumatic, normocephalic, normal inspection Eye exam: Present: normal appearance, PERRL, EOMI. Absent: scleral icterus, conjunctival injection ENT exam: Present: normal exam, mucous membranes moist Neck exam: Present: normal inspection, full ROM. Absent: tenderness Respiratory exam: Present: normal lung sounds bilaterally. Absent: respiratory distress, wheezes Cardiovascular Exam: Present: regular rate, normal rhythm, normal heart sounds Course Vital Signs 05/19/21 08:17 Temperature 98.3 F Pulse Rate 88 Respiratory 18 Rate Blood Pressure 118/81 O2 Sat by Pulse 97 Oximetry Medical Decision Making - Medical Decision Making Vitals are stable. Patient is well-appearing. No respiratory distress. CBC did show leukocytosis although patient just finished a Medrol Dosepak. CMP is unremarkable. Espinoza virus is negative. Chest x-ray shows no acute cardio pulmonary process. Patient is already been treated with azithromycin. Patient likely has viral respiratory infection. Patient is requesting additional steroids as usually she needs a higher dose. These were prescribed for her area patient has an appointment with her history professor in one week. If she has worsening symptoms prior to that she'll return to the emergency room. Otherwise she will follow up outpatient. - Lab Data Result diagrams: 05/19/21 08:58 05/19/21 08:58 Lab Results 05/19/21 05/19/21 05/19/21 Range/Units 08:58 08:58 08:58 WBC 12.1 H (3.8-10.6) k/uL RBC 4.79 (3.80-5.40) m/uL Hgb 14.5 (11.4-16.0) gm/dL Hct 42.0 (34.0-46.0) % MCV 87.7 (80.0-100.0) fL MCH 30.2 (25.0-35.0) pg MCHC 34.4 (31.0-37.0) g/dL RDW 13.7 (11.5-15.5) % Plt Count 311 (150-450) k/uL MPV 7.3 Neutrophils % 67 % Lymphocytes % 25 % Monocytes % 5 % Eosinophils % 1 % Basophils % 1 % Neutrophils # 8.1 H (1.3-7.7) k/uL Lymphocytes # 3.0 (1.0-4.8) k/uL Monocytes # 0.6 (0-1.0) k/uL Eosinophils # 0.1 (0-0.7) k/uL Basophils # 0.1 (0-0.2) k/uL Sodium 136 L (137-145) mmol/L Potassium 4.0 (3.5-5.1) mmol/L Chloride 107 (98-107) mmol/L Carbon Dioxide 21 L (22-30) mmol/L Anion Gap 8 mmol/L BUN 9 (7-17) mg/dL Creatinine 0.58 (0.52-1.04) mg/dL Est GFR (CKD-EPI)AfAm >90 (>60 ml/min/1.73 sqM) Est GFR (CKD-EPI)NonAf >90 (>60 ml/min/1.73 sqM) Glucose 91 (74-99) mg/dL Calcium 9.8 (8.4-10.2) mg/dL Total Bilirubin 0.4 (0.2-1.3) mg/dL AST 22 (14-36) U/L ALT 17 (4-34) U/L Alkaline Phosphatase 70 (38-126) U/L Total Protein 6.9 (6.3-8.2) g/dL Albumin 4.1 (3.5-5.0) g/dL Coronavirus (PCR) Not Detected (Not Detectd) Disposition Clinical Impression: Cough Disposition: HOME SELF-CARE Condition: Good Instructions (If sedation given, give patient instructions): Acute Cough (ED) Additional Instructions: Please take medications as directed. Please follow-up with your doctor in one to 2 days. Follow-up at your pulmonology appointment. Return to the emergency room for any worsening symptoms. Prescriptions: RX: predniSONE 50 mg PO DAILY #5 tablet Is patient prescribed a controlled substance at d/c from ED?: No Referrals: Marc Sheffield DO [Primary Care Provider] - 1-2 days Time of Disposition: 09:42
[2021-05-19 09:26] LABS: ALT 17 U/L (4-34); AST 22 U/L (14-36); African American GFR (CKD) >90 (>60 ml/min/1.73 sqM); Albumin 4.1 g/dL (3.5-5.0); Alkaline Phosphatase 70 U/L (38-126); Anion Gap 8 mmol/L; Blood Urea Nitrogen 9 mg/dL (7-17); Calcium 9.8 mg/dL (8.4-10.2); Carbon Dioxide 21 mmol/L (22-30); Chloride 107 mmol/L (98-107); Glucose 91 mg/dL (74-99); Non-African American GFR(CKD) >90 (>60 ml/min/1.73 sqM); Sodium 136 mmol/L (137-145); Total Bilirubin 0.4 mg/dL (0.2-1.3); Total Protein 6.9 g/dL (6.3-8.2)
[2021-05-19] MEDS ORDERED: methylPREDNISolone SOD SUCCI 125 MG/2 ML VIAL IV STA (09:40)
[2021-05-19 09:58] VITALS: BP 124/95; PULSE 75; TEMP 98.5
== END 2021-05-19 09:58 | disposition home or self-care (01) ==
LOC: EC 08:07
DX: R05 Cough (principal); J45.909 Unspecified asthma, uncomplicated; Z20.822 Contact with and (suspected) exposure to COVID-19; Z87.891 Personal history of nicotine dependence; Z79.51 Long term (current) use of inhaled steroids; Z91.09 Other allergy status, other than to drugs and biological substances; Z88.0 Allergy status to penicillin; Z91.012 Allergy to eggs; Z88.8 Allergy status to other drugs, medicaments and biological substances
CPT/HCPCS: 99283; 96374; 96361; 36415; 80053; 85025; 87635; 71046; J2930

== ENCOUNTER → 2021-08-03 | Outpatient (CLI) | payer MEDICAID ==
[2021-08-03 19:44] LABS: Basophils # (A) 0.06 X 10*3/uL (0.00-0.10); Basophils % (A) 0.6 %; Eosinophils # (A) 0.05 X 10*3/uL (0.04-0.35); Eosinophils % (A) 0.5 %; HCT 36.9 % (37.2-46.3); HGB 12.2 g/dL (12.0-15.0); Lymphocytes # (A) 2.76 X 10*3/uL (0.90-5.00); Lymphocytes % (A) 29.6 %; MCH 29.4 pg (27.0-32.0); MCHC 33.1 g/dL (32.0-37.0); MCV 88.9 fL (80.0-97.0); Mean Platelet Volume 11.3 fL (9.5-12.2); Monocytes # (A) 0.63 X 10*3/uL (0.20-1.00); Monocytes % (A) 6.8 %; Neutrophils # (A) 5.78 X 10*3/uL (1.80-7.70); Neutrophils % (A) 62.1 %; Platelet Count 269 X 10*3/uL (140-440); RBC 4.15 X 10*6/uL (4.10-5.20); RDW 14.5 % (11.5-14.5); WBC 9.32 X 10*3/uL (4.50-10.00)
[2021-08-03 22:21] LABS: ALT 24 U/L (8-44); AST 19 U/L (13-35); African American GFR (CKD) 124.7 (60.0-200.0); Albumin/Globulin Ratio 1.74 (1.60-3.17); Alkaline Phosphatase 58 U/L (41-126); Blood Urea Nitrogen 9.1 mg/dL (9.0-27.0); Calcium 9.1 mg/dL (8.7-10.3); Carbon Dioxide 18.4 mmol/L (21.6-31.8); Chloride 107 mmol/L (96-109); Globulin 2.3 g/dL (1.6-3.3); Glucose 87 mg/dL (70-110); Non-African American GFR(CKD) 107.6 (60.0-200.0); Potassium 4.2 mmol/L (3.5-5.5); Sodium 139 mmol/L (135-145); Total Bilirubin <0.20 mg/dL (0.30-1.20); Total Protein 6.3 g/dL (6.2-8.2)
== END | disposition home or self-care (01) ==
LOC: LABWHC1 12:18
PROVIDERS: ATTEND Internal Medicine Critical Care Medicine
DX: O26.90 Pregnancy related conditions, unspecified, unspecified trimester (principal); Z3A.00 Weeks of gestation of pregnancy not specified
CPT/HCPCS: 36415; 80053; 84702; 85025

== ENCOUNTER 2021-09-15 10:40 | Emergency (ER) | payer MEDICAID ==
[2021-09-15 10:52] VITALS: RESP 18; TEMP 98.1
[2021-09-15] MEDS ORDERED: SODIUM CHLORIDE 0.9% 2,000 ML IV ONE (11:12)
[2021-09-15] MEDS ORDERED: BAMLANIVIMAB (EUA) 700 MG, ETESEVIMAB (EUA) 1,400 MG in SODIUM CHLORIDE 0.9% 100 ML IVPB ONE (11:45)
[2021-09-15] MEDS ORDERED: SODIUM CHLORIDE 0.9% 50 ML IVPB ONE (11:45)
--- NOTE | 2021-09-15 12:20 | ED ---
General Adult HPI - General Chief complaint: Shortness of Breath Stated complaint: Covid+/BAM Time Seen by Provider: 09/15/21 10:54 Source: patient, RN notes reviewed Mode of arrival: ambulatory Limitations: no limitations - History of Present Illness Initial comments: 41-year-old female sent emergency Department with chief complaint of COVID-19. Patient states that she tested +3 days ago she states her primary care physician Dr. Sheffield is recommended to get monoclonal antibodies unable to set up outpatient was referred to emergency for. Patient is currently Colace . Patient did discuss with OB about being placed on steroids secondary to asthma they are okay with this. Patient denies any worsening shortness breath but she has felt short of breath, wheezing, feels dehydrated. - Related Data Home Medications Medication Instructions Recorded Confirmed Montelukast Sodium [Singulair] 10 mg PO HS 07/04/19 05/19/21 Pnv No.95/Ferrous Fum/Folic AC 1 tab PO DAILY 08/20/20 05/19/21 [ Multivitamin Tablet] Zinc 50 mg PO DAILY 08/20/20 05/19/21 Albuterol Inhaler [Ventolin Hfa 2 puff INHALATION RT-Q4H PRN 05/19/21 05/19/21 Inhaler] Fluticasone Furoate [Arnuity 1 puff INHALATION RT-BID 05/19/21 05/19/21 Ellipta] Loratadine [Claritin] 10 mg PO DAILY 05/19/21 05/19/21 Ascorbic Acid [Vitamin C] 1,000 mg PO BID 09/15/21 09/15/21 Cefuroxime Axetil [Ceftin] 500 mg PO BID 09/15/21 09/15/21 Cholecalciferol [Vitamin D3 (10 10 mcg PO DAILY 09/15/21 09/15/21 Mcg = 400 Iu)] Cyanocobalamin (Vitamin B-12) 1,000 mcg PO DAILY 09/15/21 09/15/21 [Vitamin B-12] EPINEPHrine (Auto Inject) [Epipen] 0.3 mg IM ONCE PRN 09/15/21 09/15/21 Fluticasone Nasal [place] [Flonase 1 spray EA NOSTRIL DAILY 09/15/21 09/15/21 Nasal [place]] Folic Acid 0.4 mg PO DAILY 09/15/21 09/15/21 Elsa Root 1 tab PO DAILY 09/15/21 09/15/21 Ipratropium-Albuterol Nebulize 3 ml INHALATION RT-Q6H PRN 09/15/21 [Duoneb 0.5 mg-3 mg/3 ml Soln] Immune Support 1 tab PO DAILY 09/15/21 methylPREDNISolone [Medrol Dose See Taper PO DAILY 09/15/21 09/15/21 Pack] Previous Rx's Medication Instructions Recorded Dexamethasone [Decadron] 6 mg PO DAILY #5 tablet 09/15/21 Allergies Allergy/AdvReac Type Severity Reaction Status Date / Time adhesive tape Allergy Rash/Hives Verified 09/15/21 12:10 egg Allergy Rash/Hives Verified 09/15/21 12:10 Penicillins Allergy Unknown Verified 09/15/21 12:10 tegaderm Allergy "leaves Uncoded 05/19/21 08:22 whelts" Review of Systems ROS Statement: Those systems with pertinent positive or pertinent negative responses have been documented in the HPI. ROS Other: All systems not noted in ROS Statement are negative. Past Medical History Past Medical History: Asthma, GERD/Reflux Additional Past Medical History / Comment(s): uti's during . dysmenorrhagia. BPV History of Any Multi-Drug Resistant Organisms: None Reported Past Surgical History: Back Surgery, Section, Orthopedic Surgery Additional Past Surgical History / Comment(s): lumbar laminectomy 2000-dr aparicio. rt knee arthroscopy with meiscectomy Past Anesthesia/Blood Transfusion Reactions: Previous Problems w/ Anesthesia, Postoperative Nausea & Vomiting (PONV) Additional Past Anesthesia/Blood Transfusion Reaction / Comment(s): bradycardic after surgery Past Psychological History: Anxiety Smoking Status: Former smoker Past Alcohol Use History: None Reported Past Drug Use History: None Reported - Past Family History Mother Family Medical History: No Reported History General Exam Limitations: no limitations General appearance: alert, in no apparent distress Head exam: Present: atraumatic, normocephalic, normal inspection Eye exam: Present: normal appearance, PERRL, EOMI. Absent: scleral icterus, conjunctival injection, periorbital swelling ENT exam: Present: normal exam, normal oropharynx, mucous membranes moist Neck exam: Present: normal inspection, full ROM. Absent: tenderness, meningismus, lymphadenopathy Respiratory exam: Present: normal lung sounds bilaterally. Absent: respiratory distress, wheezes, rales, rhonchi, stridor Cardiovascular Exam: Present: regular rate, normal rhythm, normal heart sounds. Absent: systolic murmur, diastolic murmur, rubs, gallop, clicks Course Vital Signs 09/15/21 09/15/21 10:49 11:31 Temperature 98.1 F Pulse Rate 99 Respiratory 18 18 Rate Blood Pressure 124/86 O2 Sat by Pulse 96 Oximetry Medical Decision Making - Medical Decision Making Patient will follow-up with her shellfish sorter/PCP, BUTTON BREAKER OPERATOR and return for any worsening symptoms. Disposition Clinical Impression: COVID-19 Disposition: HOME SELF-CARE Condition: Stable Instructions (If sedation given, give patient instructions): Coronavirus Disease 2019 (COVID-19) Additional Instructions: Please return to the Emergency Department if symptoms worsen or any other concerns. Prescriptions: Dexamethasone [Decadron] 6 mg PO DAILY #5 tablet Is patient prescribed a controlled substance at d/c from ED?: No Referrals: Marc Sheffield DO [Primary Care Provider] - 1-2 days Time of Disposition: 12:19
[2021-09-15 15:50] VITALS: BP 130/80; PULSE 84
== END 2021-09-15 15:50 | disposition home or self-care (01) ==
LOC: EC 10:40
DX: O98.519 Other viral diseases complicating pregnancy, unspecified trimester (principal); U07.1 COVID-19; O99.519 Diseases of the respiratory system complicating pregnancy, unspecified trimester; J45.909 Unspecified asthma, uncomplicated; O99.619 Diseases of the digestive system complicating pregnancy, unspecified trimester; K21.9 Gastro-esophageal reflux disease without esophagitis; Z3A.00 Weeks of gestation of pregnancy not specified; Z79.899 Other long term (current) drug therapy; Z79.51 Long term (current) use of inhaled steroids; Z87.891 Personal history of nicotine dependence; Z91.040 Latex allergy status; Z91.012 Allergy to eggs; Z88.0 Allergy status to penicillin
CPT/HCPCS: 99284; 96360; J3490

== ENCOUNTER → 2023-11-18 | Outpatient (CLI) | payer MEDICAID ==
[2023-11-18 15:50] LABS: Basophils # (A) 0.06 X 10*3/uL (0.00-0.10); Basophils % (A) 0.8 %; Eosinophils # (A) 0.14 X 10*3/uL (0.04-0.35); Eosinophils % (A) 1.9 %; HCT 41.4 % (37.2-46.3); HGB 13.3 g/dL (12.0-15.0); Lymphocytes # (A) 2.27 X 10*3/uL (0.90-5.00); Lymphocytes % (A) 31.3 %; MCH 27.4 pg (27.0-32.0); MCHC 32.1 g/dL (32.0-37.0); MCV 85.2 FL (80.0-97.0); Mean Platelet Volume 10.9 FL (9.5-12.2); Monocytes # (A) 0.44 X 10*3/uL (0.20-1.00); Monocytes % (A) 6.1 %; NRBC Per 100 WBC 0 X 10*3/uL (0.00-0.01); Neutrophils # (A) 4.33 X 10*3/uL (1.80-7.70); Neutrophils % (A) 59.6 %; Platelet Count 258 X 10*3/uL (140-440); RBC 4.86 X 10*6/uL (4.10-5.20); RDW 14.5 % (11.5-14.5); WBC 7.26 X 10*3/uL (4.50-10.00)
[2023-11-18 16:24] LABS: ALT 33 U/L (8-44); AST 21 U/L (13-35); Albumin/Globulin Ratio 1.67 Ratio (1.60-3.17); Alkaline Phosphatase 71 U/L (41-126); Blood Urea Nitrogen 12.6 mg/dL (9.0-27.0); Calcium 9.5 mg/dL (8.7-10.3); Carbon Dioxide 25.1 mmol/L (21.6-31.8); Chloride 107 mmol/L (96-109); Chol/HDL Ratio 3.85 Ratio; Globulin 2.4 g/dL (1.6-3.3); Glucose 88 mg/dL (70-110); LDL Cholesterol,Calculated 132.9 mg/dL (0.0-131.0); Potassium 4.6 mmol/L (3.5-5.5); Sodium 140 mmol/L (135-145); T4, Free (Free Thyroxine) 1.04 ng/dL (0.80-1.80); Total Bilirubin <0.2 mg/dL (0.3-1.2); Total Protein 6.4 g/dL (6.2-8.2)
== END | disposition home or self-care (01) ==
LOC: LABWHC1 09:16
PROVIDERS: ATTEND Internal Medicine Critical Care Medicine
DX: Z00.00 Encounter for general adult medical examination without abnormal findings (principal); M51.9 Unspecified thoracic, thoracolumbar and lumbosacral intervertebral disc disorder; F41.9 Anxiety disorder, unspecified; J45.909 Unspecified asthma, uncomplicated
CPT/HCPCS: 36415; 80053; 80061; 82306; 83036; 84439; 84443; 85025

== ENCOUNTER → 2023-12-22 | Outpatient (CLI) | payer MEDICAID ==
--- NOTE | 2023-12-22 13:13 | MM ---
Reason for Exam: Screening (asymptomatic). Last mammogram was performed 3 year(s) and 1 month(s) ago. Patient History: Menarche at age 11. First Full-Term at age 35. Late child-bearing (after 30). Premenopausal. Currently using Hormonal Contraceptives, for 9 months. Maternal grandmother had breast cancer, age 90. Risk Values: Antonieta 5 year model risk: 1.1%. NCI Lifetime model risk: 14.4%. Prior Study Comparison: 04/13/2019 Bilateral Diagnostic Mammogram, [facility]. 10/19/2019 Bilateral Diagnostic Mammogram, [facility]. 12/03/2020 Bilateral Diagnostic Mammogram, [facility]. Tissue Density: There are scattered areas of fibroglandular density. Findings: Analyzed By CAD. There is no suspicious group of microcalcifications or new suspicious mass in either breast. Overall Assessment: Negative, BI-RAD 1 Management: Screening Mammogram of both breasts in 1 year. . Patient should continue monthly self-breast exams. A clinical breast exam by your physician is recommended on an annual basis. This exam should not preclude additional follow-up of suspicious palpable abnormalities. Note on Antonieta scores and lifetime risk: 1. A Antonieta score greater than 3% is considered moderate risk. If this is the case, consider specialist referral to assess eligibility for a risk reducing agent. 2. If overall lifetime risk for the development of breast cancer is 20% or higher, the patient may qualify for future screening with alternating mammogram and breast MRI. Electronically signed and approved by: Feliciano Wilson M.D. Radiologis
== END | disposition home or self-care (01) ==
LOC: RADMAMWWP 09:15
PROVIDERS: ATTEND Internal Medicine Critical Care Medicine
DX: Z12.31 Encounter for screening mammogram for malignant neoplasm of breast (principal); Z80.3 Family history of malignant neoplasm of breast
CPT/HCPCS: 77063; 77067

== ENCOUNTER → 2024-01-17 | Outpatient (CLI) | payer MEDICAID ==
--- NOTE | 2024-01-30 23:09 | P.PCN ---
Date of Procedure: 01/17/24 Operative Findings: Home sleep study testing Date of service is 01/17/2024 Pertinent history This is a 43-year-old female patient suspected of obstructive sleep apnea. Based on that, the patient was referred for a home sleep study. Patient has a body mass index of 48.5 Technical description The [employer] ApneaLink system was used to complete home sleep study. This is a type III home sleep study. The total recording duration was 7 hours and 56 minutes. The study started at 9:56 PM and it ended at 5:53 AM. There was a total of 7 hours and 44 minutes of flow and oxygen saturation monitoring Results Respiratory analysis showed a total of 1 obstructive apnea and 26 obstructive hypopneas with an AHI of 3.5 Oxygenation analysis No oxygen desaturation was encountered throughout the sleep study and the patient was able to maintain a pulse ox above 89%. Cardiac summary Average heart rate was 74 with a minimum heart rate of 55 and a maximal heart rate of 98 Assessment Primary snoring, no evidence of any sleep breathing disorder. AHI was 3.5. No significant nocturnal oxygen saturations. Obesity with a BMI of 48.5 History of bronchial asthma Chronic back pain degenerative arthritis Chronic anxiety Plan This is a negative study. As such, there is no need for CPAP therapy. Encourage weight loss. Optimize sleep hygiene measures. If the suspicion for sleep apnea remains high, consider for polysomnography. Otherwise, this is a negative study.
== END ==
LOC: 3 N SLEEP 16:43
PROVIDERS: ATTEND Internal Medicine Critical Care Medicine
DX: G47.30 Sleep apnea, unspecified (principal); R06.83 Snoring; E66.9 Obesity, unspecified; G89.29 Other chronic pain; M19.90 Unspecified osteoarthritis, unspecified site; F41.9 Anxiety disorder, unspecified; J45.909 Unspecified asthma, uncomplicated; Z68.42 Body mass index [BMI] 45.0-49.9, adult; Z91.048 Other nonmedicinal substance allergy status; Z91.012 Allergy to eggs; Z88.0 Allergy status to penicillin; Z88.8 Allergy status to other drugs, medicaments and biological substances; Z79.899 Other long term (current) drug therapy; Z79.51 Long term (current) use of inhaled steroids

== ENCOUNTER → 2024-02-28 | Outpatient (CLI) | payer MEDICAID ==
--- NOTE | 2024-02-29 06:08 | MR ---
EXAMINATION TYPE: MR knee RT wo con DATE OF EXAM: 02/28/2024 COMPARISON: Prior MRI right knee April 02, 2019 HISTORY: Right knee pain and swelling for over a year, repeated slip and falls TECHNIQUE: Multiplanar, multisequence images of the knee is performed without IV contrast. FINDINGS: MEDIAL MENISCUS: Persistent linear signal posterior horn through the anterior horn does not definitiv kalyan extend to articular surface. LATERAL MENISCUS: Anterior and posterior horns are intact without tear. CRUCIATE LIGAMENTS: The anterior and posterior cruciate ligaments are intact and unremarkable. COLLATERAL LIGAMENTS: The medial collateral ligament and lateral collateral ligament complex are inta ct and unremarkable. EXTENSOR MECHANISM: Visualized quadriceps and patellar tendons are intact. EFFUSION: No significant suprapatellar joint effusion. POPLITEAL CYST: No popliteal/cesar cyst. TRICOMPARTMENT SPACES: Mild tricompartment joint space loss is redemonstrated. No significant spurrin g. CARTILAGE: Chondromalacia patella with cartilaginous loss along the superior aspect of the posterior patellar pole is noted. Tricompartmental articular cartilage is otherwise preserved. BONE MARROW SIGNAL: No focal abnormal marrow signal is appreciated. OTHER: No additional significant abnormality is appreciated. IMPRESSION: 1. Persistent intrasubstance tear of the medial meniscus. 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 No significant change from prior MRI.
== END | disposition home or self-care (01) ==
LOC: RADMRIMAIN 21:49
PROVIDERS: ATTEND Orthopaedic Surgery
DX: S83.241A Other tear of medial meniscus, current injury, right knee, initial encounter (principal); M17.11 Unilateral primary osteoarthritis, right knee; M22.41 Chondromalacia patellae, right knee

== ENCOUNTER 2024-06-14 21:39 | Emergency (ER) | payer MEDICAID ==
--- NOTE | 2024-06-14 22:11 | ED ---
Abdominal Pain HPI - General Chief Complaint: Abdominal Pain Stated Complaint: ABD PAIN Time Seen by Provider: 06/14/24 21:54 Source: patient Mode of arrival: ambulatory Limitations: no limitations - History of Present Illness Initial Comments: This patient is a 43-year-old woman who complains of lower abdominal pain. She states she has been having intermittent pains going back months and that she was told she probably will end up having hysterectomy. She has had a number of studies recently including pelvic ultrasound as workup for the pain. She states that about 3 hours ago the pain became worse than it has been previously. She states the pain is constant which usually is for hours, she has not noted worsening or relieving factors. MD Complaint: abdominal pain -: month(s) Location: LLQ, RLQ, suprapubic Radiation: none Migration to: no migration Severity: severe Quality: aching Consistency: constant Improves With: nothing Worsens With: nothing Associated Symptoms: nausea, vomiting - Related Data Home Medications Medication Instructions Recorded Confirmed Montelukast Sodium [Singulair] 10 mg PO HS 07/04/19 06/21/24 Pnv No.95/Ferrous Fum/Folic AC 1 tab PO TID 08/20/20 06/21/24 [ Multivitamin Tablet] Zinc 50 mg PO BID 08/20/20 06/21/24 Fluticasone Furoate [Arnuity 1 puff INHALATION RT-DAILY 05/19/21 06/21/24 Ellipta] Cholecalciferol [Vitamin D3 (10 5,000 units PO DAILY 09/15/21 06/21/24 Mcg = 400 Iu)] EPINEPHrine (Auto Inject) [Epipen] 0.3 mg IM ONCE PRN 09/15/21 06/21/24 Doxycycline [Vibramycin] 1 tab PO DIRECTED 06/21/24 06/21/24 Furosemide [Lasix] 20 mg PO DAILY 06/21/24 06/21/24 Ginko(Unk) 1 tab PO DAILY 06/21/24 06/21/24 Ibuprofen [Advil] 200 mg PO Q8HR PRN 06/21/24 06/21/24 Levocetirizine Dihydrochloride 5 mg PO DAILY 06/21/24 06/21/24 [Xyzal] Previous Rx's Medication Instructions Recorded HYDROcodone/APAP 5-325MG [[place] 1 tab PO Q4HR PRN 3 Days #18 tab 06/15/24 5-325] Allergies Allergy/AdvReac Type Severity Reaction Status Date / Time adhesive tape Allergy Rash/Hives Verified 06/21/24 12:02 egg Allergy Rash/Hives Verified 06/21/24 12:02 Penicillins Allergy Unknown Verified 06/21/24 12:02 tegaderm Allergy "leaves Uncoded 06/21/24 12:02 whelts" Review of Systems ROS Statement: Those systems with pertinent positive or pertinent negative responses have been documented in the HPI. ROS Other: All systems not noted in ROS Statement are negative. Constitutional: Denies: fever, chills Respiratory: Denies: cough, dyspnea Cardiovascular: Denies: chest pain, palpitations, edema Gastrointestinal: Reports: abdominal pain, nausea, vomiting. Denies: diarrhea, constipation, melena, hematochezia Genitourinary: Denies: dysuria, hematuria, discharge, abnormal menses Musculoskeletal: Denies: back pain Skin: Denies: rash Neurological: Denies: headache, weakness Past Medical History Past Medical History: Asthma, GERD/Reflux Additional Past Medical History / Comment(s): uti's during . dysmenorrhagia. BPV History of Any Multi-Drug Resistant Organisms: None Reported Past Surgical History: Back Surgery, Section, Orthopedic Surgery, Uterine Ablation Additional Past Surgical History / Comment(s): lumbar laminectomy 2000-dr aparicio. rt knee arthroscopy with meiscectomy Past Anesthesia/Blood Transfusion Reactions: Previous Problems w/ Anesthesia, Postoperative Nausea & Vomiting (PONV) Additional Past Anesthesia/Blood Transfusion Reaction / Comment(s): bradycardic after surgery Past Psychological History: Anxiety Smoking Status: Former smoker Past Alcohol Use History: None Reported Past Drug Use History: None Reported - Past Family History Mother Family Medical History: No Reported History General Exam Limitations: no limitations General appearance: alert, in no apparent distress Head exam: Present: atraumatic, normocephalic Eye exam: Present: normal appearance. Absent: scleral icterus, conjunctival injection Neck exam: Present: normal inspection Respiratory exam: Present: normal lung sounds bilaterally. Absent: respiratory distress, wheezes, rales, rhonchi, stridor, accessory muscle use Cardiovascular Exam: Present: regular rate, normal rhythm, normal heart sounds. Absent: systolic murmur, diastolic murmur, rubs, gallop GI/Abdominal exam: Present: soft, tenderness. Absent: distended, guarding, re bound, mass, pulsatile mass, hernia Extremities exam: Present: normal inspection, normal capillary refill. Absent: pedal edema, calf tenderness Back exam: Present: normal inspection. Absent: CVA tenderness (R), CVA tenderness (L) Neurological exam: Present: alert Skin exam: Present: warm, dry, intact, normal color. Absent: rash Course Vital Signs 06/14/24 06/15/24 06/15/24 21:44 02:00 03:16 Temperature 98.4 F 98.5 F 98.6 F Pulse Rate 83 64 70 Respiratory 18 14 17 Rate Blood Pressure 168/103 97/55 123/71 O2 Sat by Pulse 97 96 96 Oximetry Medical Decision Making - Medical Decision Making The patient had CT scan of the abdomen and pelvis which I interpreted to show e nlarged uterus. No free air or bowel obstruction. Was pt. sent in by a medical professional or institution (, PA, D[employer], urgent care, hospital, or jail...) When possible be specific @ -[No] Did you speak to anyone other than the patient for history (EMS, parent, family, police, friend...)? What history was obtained from this source @ -[No] Did you review nursing and triage notes (agree or disagree)? Why? @ -[I reviewed and agree with nursing and triage notes] Were old charts reviewed (outside hosp., previous admission, EMS record, old EKG, old radiological studies, urgent care reports/EKG's, jail records)? Report findings @ -[No old charts were reviewed] Differential Diagnosis (chest pain, altered mental status, abdominal pain women, abdominal pain men, vaginal bleeding, weakness, fever, dyspnea, syncope, headache, dizziness, GI bleed, back pain, seizure, CVA, palpatations, mental health, musculoskeletal)? @ -[Differential Abdominal Pain Women: Appendicitis, Cholecystitis, diverticulosis, ischemic bowel, pancreatitis, hepatitis, UTI, gastroenteritis, AAA, incarcerated hernia, bowel obstruction, constipation, inflammatory bowel, hepatitis, peptic ulcer disease, splenic infarction, perforated viscus, vulvitis, ovarian torsion, PID, kidney stone, placenta abruption, this is not meant to be an all-inclusive list EKG interpreted by me (3pts min.). @ -[As above] X-rays interpreted by me (1pt min.). @ -[None done] CT interpreted by me (1pt min.). @ -[I interpreted as above U/S interpreted by me (1pt. min.). @ -[None done] What testing was considered but not performed or refused? (CT, X-rays, U/S, labs)? Why? @ -[None] What meds were considered but not given or refused? Why? @ -[None] Did you discuss the management of the patient with other professionals (professionals i.e. , PA, D[employer], lab, RT, psych nurse, social media senior associate, manager compensation, teacher, officer lieutenant, casework specialist)? Give summary @ -[No] Was smoking cessation discussed for >3mins.? @ -[No] Was critical care preformed (if so, how long)? @ -[No] Were there social determinants of health that impacted care today? How? (Homelessness, low income, unemployed, alcoholism, drug addiction, transportation, low edu. Level, literacy, decrease access to med. care, fci, rehab)? @ -[No] Was there de-escalation of care discussed even if they declined (Discuss DNR or withdrawal of care, Hospice)? DNR status @ -[No] What co-morbidities impacted this encounter? (DM, HTN, Smoking, COPD, CAD, Cancer, CVA, ARF, Chemo, Hep., AIDS, mental health diagnosis, sleep apnea, morbid obesity)? @ -[None] Was patient admitted / discharged? Hospital course, mention meds given and route, prescriptions, significant lab abnormalities, going to OR and other pertinent info. @ -[Patient is a 43-year-old woman who is here with worsening of lower abdominal pain that she has been having. The patient states she is following with the certified maintenance welder who believes she will end up having hysterectomy related t o this. The workup does reveal enlarged uterus that is consistent with the symptoms. She has had relief of symptoms with medication here and will follow with her certified maintenance welder. We discussed appropriate further care and follow-up as well as a return parameters. Undiagnosed new problem with uncertain prognosis? @ -[No] Drug Therapy requiring intensive monitoring for toxicity (Heparin, Nitro, Ins ulin, Cardizem)? @ -[No] Were any procedures done? @ -[No] Diagnosis/symptom? @ -Acute abdominal pain Uterine enlargement Acute, or Chronic, or Acute on Chronic? @ -[Acute Uncomplicated (without systemic symptoms) or Complicated (systemic symptoms)? @ -[Uncomplicated Side effects of treatment? @ -[No] Exacerbation, Progression, or Severe Exacerbation? @ -[No] Poses a threat to life or bodily function? How? (Chest pain, [place], [place], pneumonia, PE, COPD, DKA, ARF, appy, cholecystitis, CVA, Diverticulitis, Homicidal, Suicidal, threat to staff... and all critical care pts) @ -[Yes discussed that there is risk of malignancy associated with the thickened endometrium and uterine enlargement, patient will have close follow-up with her certified maintenance welder - Lab Data Result diagrams: 06/14/24 22:36 06/14/24 22:36 Lab Results 06/14/24 06/14/24 06/14/24 Range/Units 22:36 22:36 22:36 WBC 12.4 H (3.8-10.6) k/uL RBC 4.67 (3.80-5.40) m/uL Hgb 13.1 (11.4-16.0) gm/dL Hct 39.6 (34.0-46.0) % MCV 84.7 (80.0-100.0) fL MCH 28.0 (25.0-35.0) pg MCHC 33.1 (31.0-37.0) g/dL RDW 14.4 (11.5-15.5) % Plt Count 260 (150-450) k/uL MPV 8.0 Neutrophils % 75 % Lymphocytes % 18 % Monocytes % 4 % Eosinophils % 1 % Basophils % 0 % Neutrophils # 9.3 H (1.3-7.7) k/uL Lymphocytes # 2.3 (1.0-4.8) k/uL Monocytes # 0.5 (0-1.0) k/uL Eosinophils # 0.1 (0-0.7) k/uL Basophils # 0.0 (0-0.2) k/uL Sodium (137-145) mmol/L Potassium (3.5-5.1) mmol/L Chloride (98-107) mmol/L Carbon Dioxide (22-30) mmol/L Anion Gap mmol/L BUN (7-17) mg/dL Creatinine (0.52-1.04) mg/dL Est GFR (CKD-EPI)AfAm (>60 ml/min/1.73 sqM) Est GFR (CKD-EPI)NonAf (>60 ml/min/1.73 sqM) Glucose (74-99) mg/dL Plasma Lactic Acid [place] (0.7-2.0) mmol/L Calcium (8.4-10.2) mg/dL Total Bilirubin (0.2-1.3) mg/dL AST (14-36) U/L ALT (4-34) U/L Alkaline Phosphatase (38-126) U/L C-Reactive Protein (<1.0) mg/dL Total Protein (6.3-8.2) g/dL Albumin (3.5-5.0) g/dL Amylase (30-110) U/L Lipase (23-300) U/L Urine Color Colorless Urine Appearance Clear (Clear) Urine pH 5.5 (5.0-8.0) Ur Specific [place] 1.006 (1.001-1.035) Urine Protein Negative (Negative) Urine Glucose (UA) Negative (Negative) Urine Ketones Negative (Negative) Urine Blood Negative (Negative) Urine Nitrite Negative (Negative) Urine Bilirubin Negative (Negative) Urine Urobilinogen <2.0 (<2.0) mg/dL Ur Leukocyte Esterase Negative (Negative) Urine HCG, Qual Not Detected (Not Detectd) 06/14/24 06/14/24 Range/Units 22:36 22:36 WBC (3.8-10.6) k/uL RBC (3.80-5.40) m/uL Hgb (11.4-16.0) gm/dL Hct (34.0-46.0) % MCV (80.0-100.0) fL MCH (25.0-35.0) pg MCHC (31.0-37.0) g/dL RDW (11.5-15.5) % Plt Count (150-450) k/uL MPV Neutrophils % % Lymphocytes % % Monocytes % % Eosinophils % % Basophils % % Neutrophils # (1.3-7.7) k/uL Lymphocytes # (1.0-4.8) k/uL Monocytes # (0-1.0) k/uL Eosinophils # (0-0.7) k/uL Basophils # (0-0.2) k/uL Sodium 136 L (137-145) mmol/L Potassium 3.8 (3.5-5.1) mmol/L Chloride 110 H (98-107) mmol/L Carbon Dioxide 23 (22-30) mmol/L Anion Gap 3 mmol/L BUN 10 (7-17) mg/dL Creatinine 0.62 (0.52-1.04) mg/dL Est GFR (CKD-EPI)AfAm >90 (>60 ml/min/1.73 sqM) Est GFR (CKD-EPI)NonAf >90 (>60 ml/min/1.73 sqM) Glucose 107 H (74-99) mg/dL Plasma Lactic Acid [place] 0.7 (0.7-2.0) mmol/L Calcium 9.3 (8.4-10.2) mg/dL Total Bilirubin 0.3 (0.2-1.3) mg/dL AST 21 (14-36) U/L ALT 24 (4-34) U/L Alkaline Phosphatase 74 (38-126) U/L C-Reactive Protein 1.7 H (<1.0) mg/dL Total Protein 6.4 (6.3-8.2) g/dL Albumin 3.8 (3.5-5.0) g/dL Amylase 52 (30-110) U/L Lipase 77 (23-300) U/L Urine Color Urine Appearance (Clear) Urine pH (5.0-8.0) Ur Specific [place] (1.001-1.035) Urine Protein (Negative) Urine Glucose (UA) (Negative) Urine Ketones (Negative) Urine Blood (Negative) Urine Nitrite (Negative) Urine Bilirubin (Negative) Urine Urobilinogen (<2.0) mg/dL Ur Leukocyte Esterase (Negative) Urine HCG, Qual (Not Detectd) Disposition Clinical Impression: Abdominal pain Disposition: HOME SELF-CARE Condition: Good Instructions (If sedation given, give patient instructions): Abdominal Pain (ED) Prescriptions: HYDROcodone/APAP 5-325MG [[place] 5-325] 1 tab PO Q4HR PRN 3 Days #18 tab PRN Reason: Pain Is patient prescribed a controlled substance at d/c from ED?: No Referrals: Marc Sheffield DO [Primary Care Provider] - 1-2 days
[2024-06-14] MEDS: SODIUM CHLORIDE 0.9% 1,000 ML IV ONE (22:41)
[2024-06-14] MEDS: ONDANSETRON 4 MG/2 ML VIAL IVP STA (22:41)
[2024-06-14] MEDS: MORPHINE SULFATE 4 MG/ML SYRINGE IV STA (22:41)
[2024-06-14 22:44] LABS: Basophils % (A) 0 %; Eosinophils # (A) 0.1 k/uL (0-0.7); Eosinophils % (A) 1 %; HCT 39.6 % (34.0-46.0); HGB 13.1 gm/dL (11.4-16.0); Lymphocytes # (A) 2.3 k/uL (1.0-4.8); Lymphocytes % (A) 18 %; MCHC 33.1 g/dL (31.0-37.0); MCV 84.7 fL (80.0-100.0); Monocytes # (A) 0.5 k/uL (0-1.0); Monocytes % (A) 4 %; Neutrophils # (A) 9.3 k/uL (1.3-7.7); Neutrophils % (A) 75 %; Platelet Count 260 k/uL (150-450); RBC 4.67 m/uL (3.80-5.40); RDW 14.4 % (11.5-15.5); WBC 12.4 k/uL (3.8-10.6)
[2024-06-14 22:59] LABS: ALT 24 U/L (4-34); AST 21 U/L (14-36); African American GFR (CKD) >90 (>60 ml/min/1.73 sqM); Albumin 3.8 g/dL (3.5-5.0); Alkaline Phosphatase 74 U/L (38-126); Amylase 52 U/L (30-110); Anion Gap 3 mmol/L; Blood Urea Nitrogen 10 mg/dL (7-17); C Reactive Protein 1.7 mg/dL (<1.0); Calcium 9.3 mg/dL (8.4-10.2); Carbon Dioxide 23 mmol/L (22-30); Chloride 110 mmol/L (98-107); Glucose 107 mg/dL (74-99); Lipase 77 U/L (23-300); Non-African American GFR(CKD) >90 (>60 ml/min/1.73 sqM); Potassium 3.8 mmol/L (3.5-5.1); Sodium 136 mmol/L (137-145); Total Bilirubin 0.3 mg/dL (0.2-1.3); Total Protein 6.4 g/dL (6.3-8.2)
[2024-06-15 00:25] LABS: Appearance,Urine Clear (Clear); Bilirubin,Urine Negative (Negative); Blood,Urine Negative (Negative); Color,Urine Colorless; Glucose,Urine (UA) Negative (Negative); Ketones,Urine Negative (Negative); Leukocyte Esterase,Urine Negative (Negative); Nitrite,Urine Negative (Negative); PH, Urine 5.5 (5.0-8.0); Protein,Urine Negative (Negative); Specific Gravity,Urine 1.006 (1.001-1.035); Urobilinogen,Urine <2.0 mg/dL (<2.0)
--- NOTE | 2024-06-15 01:15 | CT ---
EXAM: CT Abdomen and Pelvis With Intravenous Contrast CLINICAL HISTORY: ITS.REASON CT Reason: RLQ pain TECHNIQUE: Axial computed tomography images of the abdomen and pelvis with intravenous contrast. CTDI is 57.9 mGy and DLP is 3080.4 mGy-cm. This CT exam was performed using one or more of the following dose reduction techniques: automated exposure control, adjustment of the mA and/or kV according to patient size, and/or use of iterative reconstruction technique. COMPARISON: No relevant prior studies available. FINDINGS: ABDOMEN: Liver: Mildly enlarged. Gallbladder and bile ducts: Unremarkable. Pancreas: Unremarkable. Spleen: Unremarkable. Adrenals: Unremarkable. Kidneys and ureters: No hydronephrosis. Stomach and bowel: No bowel obstruction. No bowel wall thickening. PELVIS: Appendix: No evidence of appendicitis. Bladder: Unremarkable. Reproductive: Enlarged uterus with significantly distended endometrial space. There appears to be a bicornuate uterus. Left ovarian cyst measuring 4.5 cm. ABDOMEN and PELVIS: Intraperitoneal space: Unremarkable. Bones/joints: No acute fractures. Severe bilateral foraminal stenosis L3-S1. Soft tissues: Unremarkable. Vasculature: No abdominal aortic aneurysm. Lymph nodes: No enlarged lymph nodes. IMPRESSION: Enlarged uterus with significantly distended endometrial space. There appears to be a bicornuate uterus. Left ovarian cyst measuring 4.5 cm. Recommend ultrasound and also potentially MRI.
[2024-06-15] MEDS: MORPHINE SULFATE 4 MG/ML SYRINGE IV STA (02:13)
[2024-06-15 03:17] VITALS: BP 123/71; PULSE 70; RESP 17; TEMP 98.6
== END 2024-06-15 03:10 | disposition home or self-care (01) ==
LOC: EC 21:39
CPT/HCPCS: 36415; 74177; 80053; 81003; 81025; 82150; 83605; 83690; 85025; 86140; 96361; 96374; 96375; 96376; 99284

== ENCOUNTER 2024-06-26 10:20 | Day surgery (SDC) | payer MEDICAID ==
[~2024-06-26 10:20] MED LIST changes: -ACETAMINOPHEN TAB 500 MG TAB PO PRN; -DEXAMETHASONE SOD PHOSPHATE 4 MG/ML 1 ML VIAL IV ONE; -HEPARIN SODIUM,PORCINE 5,000 UNIT/ML 1 ML VIAL SQ PRN; -LIDOCAINE 1% (10MG/ML) FOR IV START INTRADERMA PRN
[2024-06-26 10:42] VITALS: TEMP 96.8
[2024-06-26] MEDS: IV FLUID CONTINUATION 1,000 ML IV ONE (10:51)
[2024-06-26] MEDS ORDERED: LIDOCAINE 1% INJ 10MG/ML (20 ML MDV) ONE (11:02)
[2024-06-26] MEDS ORDERED: PROPOFOL 10 MG/ML 20 ML VIAL IV ONE (11:02)
--- NOTE | 2024-06-26 11:06 | P.GSHP ---
History of Present Illness H&P Date: 06/26/24 Chief Complaint: Abdominal pain, change in bowel habits 44-year-old female here for colonoscopy. Patient with lower pelvic abdominal pain. Pain is exacerbated by eating. Patient has a fibroid uterus and is planning hysterectomy in the near future. Past Medical History Past Medical History: Asthma, GERD/Reflux Additional Past Medical History / Comment(s): uti's during . dysmenorrhagia. BPV History of Any Multi-Drug Resistant Organisms: None Reported Past Surgical History: Back Surgery, Section, Orthopedic Surgery, Uterine Ablation Additional Past Surgical History / Comment(s): lumbar laminectomy 2000-dr aparicio. rt knee arthroscopy with meiscectomy Past Anesthesia/Blood Transfusion Reactions: Previous Problems w/ Anesthesia, Postoperative Nausea & Vomiting (PONV) Additional Past Anesthesia/Blood Transfusion Reaction / Comment(s): bradycardic after surgery Past Psychological History: Anxiety Smoking Status: Former smoker Past Alcohol Use History: None Reported Past Drug Use History: None Reported - Past Family History Mother Family Medical History: No Reported History Medications and Allergies Home Medications Medication Instructions Recorded Confirmed Type Montelukast Sodium [Singulair] 10 mg PO HS 07/04/19 06/26/24 History Pnv No.95/Ferrous Fum/Folic AC 1 tab PO TID 08/20/20 06/26/24 History [ Multivitamin Tablet] Zinc 50 mg PO BID 08/20/20 06/26/24 History Fluticasone Furoate [Arnuity 1 puff INHALATION RT-DAILY 05/19/21 06/26/24 History Ellipta] Cholecalciferol [Vitamin D3 (10 5,000 units PO DAILY 09/15/21 06/26/24 History Mcg = 400 Iu)] EPINEPHrine (Auto Inject) [Epipen] 0.3 mg IM ONCE PRN 09/15/21 06/26/24 History HYDROcodone/APAP 5-325MG [[place] 1 tab PO Q4HR PRN 3 Days #18 tab 06/15/24 06/26/24 Rx 5-325] Doxycycline [Vibramycin] 1 tab PO DIRECTED 06/21/24 06/26/24 History Furosemide [Lasix] 20 mg PO DAILY 06/21/24 06/26/24 History Ginko(Unk) 1 tab PO DAILY 06/21/24 06/26/24 History Ibuprofen [Advil] 200 mg PO Q8HR PRN 06/21/24 06/26/24 History Levocetirizine Dihydrochloride 5 mg PO DAILY 06/21/24 06/26/24 History [Xyzal] Allergies Allergy/AdvReac Type Severity Reaction Status Date / Time adhesive tape Allergy Rash/Hives Verified 06/26/24 10:36 egg Allergy Rash/Hives Verified 06/26/24 10:36 Penicillins Allergy Unknown Verified 06/26/24 10:36 tegaderm Allergy "leaves Uncoded 06/26/24 10:36 whelts" Surgical - Exam Vital Signs Temp Pulse Resp BP Pulse Ox 96.8 F L 65 18 120/62 94 L 06/26/24 10:41 06/26/24 10:41 06/26/24 10:41 06/26/24 10:41 06/26/24 10:41 Physical exam: General: Well-developed, well-nourished HEENT: Normocephalic, sclerae nonicteric Abdomen: Nontender, nondistended Extremities: No edema Neuro: Alert and oriented Assessment and Plan (1) Change in bowel habits Narrative/Plan: Will proceed with colonoscopy at this time. Current Visit: Yes Status: Acute Code(s): R19.4 - SNOMED Code(s): 33819804
--- NOTE | 2024-06-26 11:17 | P.PCN ---
Date of Procedure: 06/26/24 Procedure(s) Performed: PREOPERATIVE DIAGNOSIS: Abdominal pain, change in bowel habits POSTOPERATIVE DIAGNOSIS: Descending colon polyp PROCEDURE: Colonoscopy with snare polypectomy ANESTHESIA: MAC SURGEON: Deep Glasgow M.D. SPECIMENS: Colon polyp ENDOSCOPIC PROCEDURE: The patient was placed on the endoscopy table in the left decubitus position. The Olympus colonoscope was inserted into the anus and passed under direct visualization to the base of the cecum. The appendiceal orifice was visualized. From that point the scope was slowly withdrawn inspecting all surfaces carefully. There were no neoplastic inflammatory or polypoid lesions throughout the cecum, ascending, and transverse colon. In the descending colon a small polyp was seen and removed using the snare without cautery technique. The remainder of the descending sigmoid and rectum was normal. There was no visible diverticulosis. Digital rectal examination was normal. The patient was taken to the recovery room in stable condition per anesthesia guidelines. RECOMMENDATIONS: Await biopsy results.
[2024-06-26 11:50] VITALS: BP 118/83; PULSE 73; RESP 18
== END 2024-06-26 11:58 | disposition home or self-care (01) ==
LOC: ORWHC2ENDO 10:20
PROVIDERS: ATTEND Surgery
DX: R10.9 Unspecified abdominal pain
CPT/HCPCS: 45385; 81025; 88305

== ENCOUNTER → 2024-07-04 | Outpatient (CLI) | payer MEDICAID ==
[2024-07-04 15:14] LABS: Blood Urea Nitrogen 9.3 mg/dL (9.0-27.0); Calcium 9.3 mg/dL (8.7-10.3); Carbon Dioxide 21.9 mmol/L (21.6-31.8); Chloride 104 mmol/L (96-109); Glucose 92 mg/dL (70-110); Potassium 4.4 mmol/L (3.5-5.5); Sodium 138 mmol/L (135-145)
[2024-07-04 15:40] LABS: Basophils # (A) 0.05 X 10*3/uL (0.00-0.10); Basophils % (A) 0.7 %; Eosinophils # (A) 0.09 X 10*3/uL (0.04-0.35); Eosinophils % (A) 1.3 %; HCT 42.3 % (37.2-46.3); HGB 13.8 g/dL (12.0-15.0); Lymphocytes # (A) 2.21 X 10*3/uL (0.90-5.00); Lymphocytes % (A) 30.8 %; MCH 27.5 pg (27.0-32.0); MCHC 32.6 g/dL (32.0-37.0); MCV 84.3 FL (80.0-97.0); Mean Platelet Volume 11.2 FL (9.5-12.2); Monocytes # (A) 0.61 X 10*3/uL (0.20-1.00); Monocytes % (A) 8.5 %; NRBC Per 100 WBC 0 X 10*3/uL (0.00-0.01); Neutrophils # (A) 4.19 X 10*3/uL (1.80-7.70); Neutrophils % (A) 58.4 %; Platelet Count 269 X 10*3/uL (140-440); RBC 5.02 X 10*6/uL (4.10-5.20); RDW 14.8 % (11.5-14.5); WBC 7.17 X 10*3/uL (4.50-10.00)
== END | disposition home or self-care (01) ==
LOC: LABPAT 08:35
PROVIDERS: ATTEND Orthopaedic Surgery
DX: M23.91 Unspecified internal derangement of right knee (principal)
CPT/HCPCS: 36415; 80048; 85025

== ENCOUNTER 2024-07-06 09:10 | Day surgery (SDC) | payer MEDICAID ==
[2024-07-02 16:00] VITALS: BMI 48.0
--- NOTE | 2024-07-05 08:39 | P.HPOR ---
History of Present Illness H&P Date: 07/05/24 Chief Complaint: Right knee pain The patient is a 44-year-old female who presents with right knee pain for the past year. She notes she's had numerous falls. She has medial pain along with swelling and giving way. She tried medications and injection without much relief. Review of Systems Per HPI Past Medical History Past Medical History: Asthma, GERD/Reflux Additional Past Medical History / Comment(s): Hx UTI's during , dysmenorrhagia, BPV. History of Any Multi-Drug Resistant Organisms: None Reported Past Surgical History: Back Surgery, Section, Orthopedic Surgery, Uterine Ablation Additional Past Surgical History / Comment(s): Lumbar laminectomy, right knee arthroscopy, colonoscopy. Past Anesthesia/Blood Transfusion Reactions: Previous Problems w/ Anesthesia, Postoperative Nausea & Vomiting (PONV) Additional Past Anesthesia/Blood Transfusion Reaction / Comment(s): Bradycardic after surgery. Smoking Status: Former smoker - Past Family History Mother Family Medical History: No Reported History Medications and Allergies Home Medications Medication Instructions Recorded Confirmed Type Montelukast Sodium [Singulair] 10 mg PO HS 07/04/19 07/02/24 History Fluticasone Furoate [Arnuity 1 puff INHALATION RT-DAILY 05/19/21 07/02/24 History Ellipta] EPINEPHrine (Auto Inject) [Epipen] 0.3 mg IM ONCE PRN 09/15/21 07/02/24 History HYDROcodone/APAP 5-325MG [[place] 1 tab PO Q4HR PRN 3 Days #18 tab 06/15/24 07/02/24 Rx 5-325] Furosemide [Lasix] 20 mg PO DAILY 06/21/24 07/02/24 History Ibuprofen [Advil] 200 mg PO Q8HR PRN 06/21/24 07/02/24 History Allergies Allergy/AdvReac Type Severity Reaction Status Date / Time adhesive tape Allergy Rash/Hives Verified 07/02/24 15:41 egg Allergy Rash/Hives Verified 07/02/24 15:41 Penicillins Allergy Unknown Verified 07/02/24 15:41 tegaderm Allergy "leaves Uncoded 07/02/24 15:41 whelts" Physical Examination - Knee right Appearance: effusion Effusion grade: grade 2 Tenderness with palpation: anterior, medial Pain: throughout ROM Gait: limping ROM: extension: -10 degrees ROM: flexion: 110 degrees Crepitus with motion: Yes Strength: extension: 5/5 Strength: flexion: 5/5 Meniscal tests: medial meniscal tests: positive, medial joint line pain: positive Results The patient is a well-developed well-nourished female approximately 5 foot 7, 310 pounds of endomorphic habitus. HEENT exam is nonfocal, neck is supple. She has painless passive motion of the right hip. Straight leg raise negative. On examination the right knee, she is tender about the medial joint line. Collaterals are stable, Jose was negative, Koko's elicits medial pain. She has an antalgic gait pattern. Her distal neurovascular appears intact in the right lower extremity. - Diagnostic results Knee MRI: image reviewed (MRI of the right knee shows increased signal involving the posterior medial meniscus along with medial and patellofemoral compartment degenerative changes.) Assessment and Plan Assessment: Right knee internal derangement/recurrent medial meniscal tear Obesity Plan: I talked to the patient at length regarding her condition along with treatment options. At this point she is quite symptomatic having pain and mechanical symptoms despite conservative measures. After a thorough discussion she opts to proceed with surgery. We'll plan to proceed with right knee arthroscopy with probable partial medial meniscectomy. Risks and benefits are discussed at length in layman's terms. We will likely perform that as an outpatient procedure.
[~2024-07-06 09:10] MED LIST changes: +MIDAZOLAM 2 MG/2 ML VIAL IV PRN
[2024-07-06 09:53] VITALS: RESP 16; TEMP 97.2
[2024-07-06] MEDS: IV FLUID CONTINUATION 1,000 ML IV ONE ×2 (10:02→10:17)
[2024-07-06] MEDS: ONDANSETRON 4 MG/2 ML VIAL IVP ONE (10:10)
[2024-07-06] MEDS: DEXAMETHASONE SOD PHOSPHATE 4 MG/ML 1 ML VIAL IV ONE (10:11)
[2024-07-06] MEDS: SCOPOLAMINE 1 MG/72 HR PATCH TRANSDERM ONE (10:11)
[2024-07-06] MEDS ORDERED: MIDAZOLAM 2 MG/2 ML VIAL ONE (10:14)
[2024-07-06] MEDS ORDERED: HYDROmorphone (PF) 1 MG/ML ONE (10:14)
[2024-07-06] MEDS ORDERED: PROPOFOL 10 MG/ML 20 ML VIAL IV ONE (10:14)
[2024-07-06] MEDS ORDERED: SUCCINYLCHOLINE CHLORIDE 200 MG/10 ML VIAL IV ONE (10:14)
[2024-07-06] MEDS ORDERED: LIDOCAINE 1% INJ 10MG/ML (20 ML MDV) ONE (10:14)
[2024-07-06] MEDS ORDERED: KETOROLAC 15 MG/ML 1 ML VIAL ONE (10:14)
[2024-07-06] MEDS ORDERED: fentaNYL (PF) 50 MCG/ML 2 ML AMP ONE (10:14)
[2024-07-06] MEDS: ceFAZolin 3 GM in SODIUM CHLORIDE 0.9% 100 ML IVPB PRN (10:18)
[2024-07-06] MEDS: EPINEPHrine (PF) 1 ML in SODIUM CHLORIDE 0.9% IRRIGATIO 3,000 ML IRRIGATION ONE (10:18)
--- NOTE | 2024-07-06 11:07 | P.OP ---
Date of Procedure: 07/06/24 Preoperative Diagnosis: Right knee internal derangement Postoperative Diagnosis: Right knee anterior horn medial meniscal tear/grade 3 chondral injury lateral patella facet Procedure(s) Performed: Right knee arthroscopic partial medial meniscectomy/patellar chondroplasty Anesthesia: IMER Surgeon: Tam Carrillo Estimated Blood Loss (ml): 10 Pathology: none sent Condition: stable Disposition: PACU Indications for Procedure: The patient is a 44-year-old female who presents with progressive right knee pain and mechanical symptoms despite conservative measures. A discussion of the risks and benefits of operative intervention versus continued conservative measures was made with the patient. She opted proceed with surgery. Operative risks include infection, neurovascular injury, development of blood clots, possible incomplete resolution of symptoms, possible worsening of symptoms and need for subsequent procedures was discussed. Informed consent was obtained. Operative Findings: As below Description of Procedure: The patient was brought to the operating room, and after induction of general anesthesia examined the right knee. Collaterals were stable, Jose was negative, and posterior drawer was negative. The right lower extremity was prepped and draped in a normal fashion. A superior lateral portal was made through a 3 mm skin incision superior and lateral to the patella. This was used for outflow. A lateral portal was made through a 5 mm vertical skin incision lateral to the patella tendon above the joint line. Diagnostic arthroscopy was performed. On inspection of the medial compartment, an oblique tear involving the anterior horn of the medial meniscus in the whitered junction was noted. This was debrided back to stable base with straight baskets and a motorized shaver. The remaining posterior horn was intact and stable. On inspection of the notch, the anterior cruciate ligament appeared to be intact. On inspection of the lateral compartment, no significant meniscal or cartilage pathology was noted. On inspection of the patellofemoral articulation, a grade 3 chondral injury was noted involving the lateral patellar facet with loose chondral fragments. This was debrided back to stable base with a motorized shaver. The gutters were clear debris. The knee was then thoroughly irrigated. The portals were closed with Steri-Strips. A sterile dressing was applied in addition to a compression stocking. The patient was awoken from general anesthesia and transferred to recovery room in good condition. Blood loss was estimated at 10 mL. No complications were incurred.
[2024-07-06] MEDS: HYDROmorphone 0.5 MG/0.5 ML SYRINGE IVP PRN (11:22)
[2024-07-06 12:32] VITALS: BP 109/69; PULSE 64
== END 2024-07-06 12:59 | disposition home or self-care (01) ==
LOC: OR 09:10
PROVIDERS: ATTEND Orthopaedic Surgery
CPT/HCPCS: 81025

== ENCOUNTER 2024-07-09 01:02 | Emergency (ER) | payer MEDICAID ==
[2024-07-09 01:06] VITALS: TEMP 98.8
[2024-07-09 01:35] LABS: Basophils # (A) 0.1 k/uL (0-0.2); Basophils % (A) 1 %; Eosinophils # (A) 0.1 k/uL (0-0.7); Eosinophils % (A) 1 %; HCT 42.6 % (34.0-46.0); HGB 13.6 gm/dL (11.4-16.0); Lymphocytes # (A) 3.5 k/uL (1.0-4.8); Lymphocytes % (A) 38 %; MCH 27.7 pg (25.0-35.0); MCV 86.4 fL (80.0-100.0); Mean Platelet Volume 7.8; Monocytes # (A) 0.6 k/uL (0-1.0); Monocytes % (A) 6 %; Neutrophils # (A) 4.6 k/uL (1.3-7.7); Neutrophils % (A) 50 %; Platelet Count 282 k/uL (150-450); RBC 4.93 m/uL (3.80-5.40); RDW 14.3 % (11.5-15.5); WBC 9.1 k/uL (3.8-10.6)
[2024-07-09 01:45] LABS: INR 0.9 (<1.2)
[2024-07-09 01:49] LABS: ALT 24 U/L (4-34); AST 24 U/L (14-36); African American GFR (CKD) >90 (>60 ml/min/1.73 sqM); Albumin 4.5 g/dL (3.5-5.0); Alkaline Phosphatase 80 U/L (38-126); Anion Gap 5 mmol/L; Blood Urea Nitrogen 8 mg/dL (7-17); Calcium 9.7 mg/dL (8.4-10.2); Carbon Dioxide 25 mmol/L (22-30); Chloride 107 mmol/L (98-107); Glucose 103 mg/dL (74-99); Non-African American GFR(CKD) >90 (>60 ml/min/1.73 sqM); Potassium 3.7 mmol/L (3.5-5.1); Sodium 137 mmol/L (137-145); Total Bilirubin 0.6 mg/dL (0.2-1.3); Total Protein 7.3 g/dL (6.3-8.2)
[2024-07-09] MEDS: TRANEXAMIC 1,000 MG/100ML-NACL 1,000 MG in EMPTY BAG 1 BAG IV PRN (01:59)
[2024-07-09] MEDS: SODIUM CHLORIDE 0.9% 1,000 ML IV ONE (01:59)
[2024-07-09 02:04] VITALS: RESP 16
[2024-07-09] MEDS: MORPHINE SULFATE 4 MG/ML SYRINGE IVP STA (02:19)
--- NOTE | 2024-07-09 04:49 | ED ---
Female Urogenital HPI <AlextarynBry - Last Filed: 07/09/24 06:22> - General Source: patient Mode of arrival: wheelchair Limitations: no limitations <Denisha Roberts - Last Filed: 07/11/24 19:34> - General Chief complaint: Vaginal Bleeding Stated complaint: Vaginal bleeding Time Seen by Provider: 07/09/24 01:09 - History of Present Illness Initial comments: 44-year-old female presenting with chief complaint of vaginal bleeding. Patient has history ofAn enlarged and bicornate uterus. During her last CT had noted a significantly distended endometrial space. She states that currently her scrap hooker estimates it to be a 4-month wait for a hysterectomy. She recently made an appoint with Dr. Pack to hopefully get it done sooner. She has been dealing with pelvic pain due to this condition. This evening she started to have a large quantity of bleeding that started very suddenly. No weakness. No fever. She also reports having a knee replacement this past week. (Denisha Roberts) - Related Data Home Medications Medication Instructions Recorded Confirmed Montelukast Sodium [Singulair] 10 mg PO HS 07/04/19 07/06/24 Fluticasone Furoate [Arnuity 1 puff INHALATION RT-DAILY 05/19/21 07/06/24 Ellipta] EPINEPHrine (Auto Inject) [Epipen] 0.3 mg IM ONCE PRN 09/15/21 07/02/24 Furosemide [Lasix] 20 mg PO DAILY 06/21/24 07/06/24 Ibuprofen [Advil] 200 mg PO Q8HR PRN 06/21/24 07/02/24 Previous Rx's Medication Instructions Recorded HYDROcodone/APAP 5-325MG [[place] 1 tab PO Q4HR PRN 3 Days #18 tab 06/15/24 5-325] HYDROcodone/APAP 5-325MG [[place] 1 tab PO Q6HR PRN #18 tab 07/06/24 5-325] medroxyPROGESTERone [Provera] 10 mg PO DAILY #10 tablet 07/09/24 Allergies Allergy/AdvReac Type Severity Reaction Status Date / Time adhesive tape Allergy Rash/Hives Verified 07/09/24 01:07 egg Allergy Rash/Hives Verified 07/09/24 01:07 Penicillins Allergy Unknown Verified 07/09/24 01:07 tegaderm Allergy "leaves Uncoded 07/09/24 01:07 whelts" Review of Systems ROS Other: All systems not noted in ROS Statement are negative. <Bry Kilgore - Last Filed: 07/09/24 06:22> ROS Other: All systems not noted in ROS Statement are negative. <Denisha Roberts - Last Filed: 07/11/24 19:34> ROS Statement: Those systems with pertinent positive or pertinent negative responses have been documented in the HPI. Past Medical History Past Medical History: Asthma, GERD/Reflux Additional Past Medical History / Comment(s): uti's during . dysm enorrhagia. BPV History of Any Multi-Drug Resistant Organisms: None Reported Past Surgical History: Back Surgery, Section, Orthopedic Surgery, Uterine Ablation Additional Past Surgical History / Comment(s): lumbar laminectomy 2000-dr aparicio. rt knee arthroscopy with meiscectomy Past Anesthesia/Blood Transfusion Reactions: Previous Problems w/ Anesthesia, Postoperative Nausea & Vomiting (PONV) Additional Past Anesthesia/Blood Transfusion Reaction / Comment(s): bradycardic after surgery Past Psychological History: Anxiety Smoking Status: Former smoker - Past Family History Mother Family Medical History: No Reported History <Denisha Roberts - Last Filed: 07/11/24 19:34> General Exam Limitations: no limitations General appearance: alert, in no apparent distress Head exam: Present: atraumatic, normocephalic Eye exam: Present: normal appearance, EOMI Neck exam: Present: normal inspection. Absent: meningismus Respiratory exam: Present: normal lung sounds bilaterally. Absent: respiratory distress, wheezes, rales, rhonchi, stridor Cardiovascular Exam: Present: regular rate, normal rhythm, normal heart sounds. Absent: systolic murmur, diastolic murmur, rubs, gallop, clicks GI/Abdominal exam: Present: soft. Absent: distended, tenderness, guarding, rebound, rigid External exam: Present: normal external exam Speculum exam: Present: vaginal bleeding (Small trickle of blood, I can easily clear the vaginal vault) By manual exam: Present: normal by manual exam Neurological exam: Present: alert, oriented X3 Psychiatric exam: Present: normal affect, normal mood Skin exam: Present: warm, dry, normal color <Denisha Roberts - Last Filed: 07/11/24 19:34> Course Vital Signs 07/09/24 07/09/24 07/09/24 01:05 02:03 06:29 Temperature 98.8 F Pulse Rate 104 H 88 81 Respiratory 20 16 16 Rate Blood Pressure 134/84 137/77 108/71 O2 Sat by Pulse 100 95 Oximetry Medical Decision Making - Lab Data Result diagrams: 07/09/24 01:20 07/09/24 01:23 <Bry Kilgore - Last Filed: 07/09/24 06:22> - Lab Data Result diagrams: 07/09/24 01:20 07/09/24 01:23 <Denisha Roberts - Last Filed: 07/11/24 19:34> - Medical Decision Making Was pt. sent in by a medical professional or institution (, PA, UTILIZATION REVIEW COORDINATOR, urgent care, hospital, or [facility]...) When possible be specific @ -[No] Did you speak to anyone other than the patient for history (EMS, parent, family, police, friend...)? What history was obtained from this source @ -[No] Did you review nursing and triage notes (agree or disagree)? Why? @ -[I reviewed and agree with nursing and triage notes] Were old charts reviewed (outside hosp., previous admission, EMS record, old EKG, old radiological studies, urgent care reports/EKG's, [facility] records)? Report findings @ -CT from 06/15 reviewed, enlarged uterus with significantly distended endometrial space. Bicornate uterus. Left ovarian cyst measuring 4.5 cm. Differential Diagnosis (chest pain, altered mental status, abdominal pain women, abdominal pain men, vaginal bleeding, weakness, fever, dyspnea, syncope, headache, dizziness, GI bleed, back pain, seizure, CVA, palpatations, mental health, musculoskeletal)? @ -MDM Differential Vaginal Bleeding: Spontaneous , threatened , molar , ectopic , bloody show, incompetent cervix, abruptioplacenta, placenta previa, uterine rupture, dysfunctional uterine bleeding, hemorrhage, uterine fibroids. ... This is not meant to be an all-inclusive list EKG interpreted by me (3pts min.). @ -[As above] X-rays interpreted by me (1pt min.). @ -[None done] CT interpreted by me (1pt min.). @ -[None done] U/S interpreted by me (1pt. min.). @ -[None done] What testing was considered but not performed or refused? (CT, X-rays, U/S, labs)? Why? @ -[None] What meds were considered but not given or refused? Why? @ -[None] Did you discuss the management of the patient with other professionals (professionals i.e. , PA, UTILIZATION REVIEW COORDINATOR, lab, RT, psych nurse, social media specialist, cabin agent, teacher, chief information security officer, field case manager)? Give summary @ -My attending spoke with [facility] [employer] on-call Dr. Han Was smoking cessation discussed for >3mins.? @ -[No] Was critical care preformed (if so, how long)? @ -[No] Were there social determinants of health that impacted care today? How? (Homelessness, low income, unemployed, alcoholism, drug addiction, transportation, low edu. Level, literacy, decrease access to med. care, group home, rehab)? @ -[No] Was there de-escalation of care discussed even if they declined (Discuss DNR or withdrawal of care, Hospice)? DNR status @ -[No] What co-morbidities impacted this encounter? (DM, HTN, Smoking, COPD, CAD, Cancer, CVA, ARF, Chemo, Hep., AIDS, mental health diagnosis, sleep apnea, morbid obesity)? @ -[None] Was patient admitted / discharged? Hospital course, mention meds given and route, prescriptions, significant lab abnormalities, going to OR and other pertinent info. @ -44-year-old female presenting with chief complaint of vaginal bleeding. Patient has a known enlarged bicornate uterus, is trying to get in for a hysterectomy but currently states that the wait time is about 4 months. This evening she had sudden onset significant vaginal bleeding. She admits to some mild pelvic discomfort. History and physical examination are conducted. Lab work shows no leukocytosis or anemia. Vital signs are stable. Patient is given morphine for pain and TXA to stop her bleeding. As well as 1 L fluids. Patient is signed out to my attending Dr. kilgore who will be contacting [facility] [facility] on-call for suggestions on disposition. Anticipated discharge instructions are put in, subject to change Undiagnosed new problem with uncertain prognosis? @ -[No] Drug Therapy requiring intensive monitoring for toxicity (Heparin, Nitro, Insulin, Cardizem)? @ -[No] Were any procedures done? @ -[No] Diagnosis/symptom? @ -[default] Acute, or Chronic, or Acute on Chronic? @ -[default] Uncomplicated (without systemic symptoms) or Complicated (systemic symptoms)? @ -[default] Side effects of treatment? @ -[No] Exacerbation, Progression, or Severe Exacerbation? @ -[No] Poses a threat to life or bodily function? How? (Chest pain, [place], [place], pneumonia, PE, COPD, DKA, ARF, appy, cholecystitis, CVA, Diverticulitis, Homicidal, Suicidal, threat to staff... and all critical care pts) @ -[No] (Denisha Roberts) - Lab Data Lab Results 07/09/24 07/09/24 07/09/24 Range/Units 01:15 01:20 01:20 WBC 9.1 (3.8-10.6) k/uL RBC 4.93 (3.80-5.40) m/uL Hgb 13.6 (11.4-16.0) gm/dL Hct 42.6 (34.0-46.0) % MCV 86.4 (80.0-100.0) fL MCH 27.7 (25.0-35.0) pg MCHC 32.0 (31.0-37.0) g/dL RDW 14.3 (11.5-15.5) % Plt Count 282 (150-450) k/uL MPV 7.8 Neutrophils % 50 % Lymphocytes % 38 % Monocytes % 6 % Eosinophils % 1 % Basophils % 1 % Neutrophils # 4.6 (1.3-7.7) k/uL Lymphocytes # 3.5 (1.0-4.8) k/uL Monocytes # 0.6 (0-1.0) k/uL Eosinophils # 0.1 (0-0.7) k/uL Basophils # 0.1 (0-0.2) k/uL PT 10.0 (10.0-12.5) sec INR 0.9 (<1.2) APTT 25.0 (22.0-30.0) sec Sodium (137-145) mmol/L Potassium (3.5-5.1) mmol/L Chloride (98-107) mmol/L Carbon Dioxide (22-30) mmol/L Anion Gap mmol/L BUN (7-17) mg/dL Creatinine (0.52-1.04) mg/dL Est GFR (CKD-EPI)AfAm (>60 ml/min/1.73 sqM) Est GFR (CKD-EPI)NonAf (>60 ml/min/1.73 sqM) Glucose (74-99) mg/dL Calcium (8.4-10.2) mg/dL Total Bilirubin (0.2-1.3) mg/dL AST (14-36) U/L ALT (4-34) U/L Alkaline Phosphatase (38-126) U/L Total Protein (6.3-8.2) g/dL Albumin (3.5-5.0) g/dL Blood Type A Positive Blood Type Recheck A Pos Bld Type Recheck Status No Antibody Screen NEGATIVE Spec Expiration Date 07/12/2024 - 231907/09/24 Range/Units 01:23 WBC (3.8-10.6) k/uL RBC (3.80-5.40) m/uL Hgb (11.4-16.0) gm/dL Hct (34.0-46.0) % MCV (80.0-100.0) fL MCH (25.0-35.0) pg MCHC (31.0-37.0) g/dL RDW (11.5-15.5) % Plt Count (150-450) k/uL MPV Neutrophils % % Lymphocytes % % Monocytes % % Eosinophils % % Basophils % % Neutrophils # (1.3-7.7) k/uL Lymphocytes # (1.0-4.8) k/uL Monocytes # (0-1.0) k/uL Eosinophils # (0-0.7) k/uL Basophils # (0-0.2) k/uL PT (10.0-12.5) sec INR (<1.2) APTT (22.0-30.0) sec Sodium 137 (137-145) mmol/L Potassium 3.7 (3.5-5.1) mmol/L Chloride 107 (98-107) mmol/L Carbon Dioxide 25 (22-30) mmol/L Anion Gap 5 mmol/L BUN 8 (7-17) mg/dL Creatinine 0.67 (0.52-1.04) mg/dL Est GFR (CKD-EPI)AfAm >90 (>60 ml/min/1.73 sqM) Est GFR (CKD-EPI)NonAf >90 (>60 ml/min/1.73 sqM) Glucose 103 H (74-99) mg/dL Calcium 9.7 (8.4-10.2) mg/dL Total Bilirubin 0.6 (0.2-1.3) mg/dL AST 24 (14-36) U/L ALT 24 (4-34) U/L Alkaline Phosphatase 80 (38-126) U/L Total Protein 7.3 (6.3-8.2) g/dL Albumin 4.5 (3.5-5.0) g/dL Blood Type Blood Type Recheck Bld Type Recheck Status Antibody Screen Spec Expiration Date Disposition Is patient prescribed a controlled substance at d/c from ED?: No <Bry Kilgore - Last Filed: 07/09/24 06:22> Is patient prescribed a controlled substance at d/c from ED?: No <Denisha Roberts - Last Filed: 07/11/24 19:34> Clinical Impression: Dysfunctional uterine bleeding Disposition: HOME SELF-CARE Condition: Good Instructions (If sedation given, give patient instructions): Abnormal (Dysfunctional) Uterine Bleeding (ED) Additional Instructions: Follow-up with your scrap hooker. Report back to ER with any new or worsening symptoms. Prescriptions: medroxyPROGESTERone [Provera] 10 mg PO DAILY #10 tablet Referrals: Marc Sheffield DO [Primary Care Provider] - 1-2 days Shayna Lam MD [STAFF PHYSICIAN] - 1-2 days
[2024-07-09 06:30] VITALS: BP 108/71; PULSE 81
[2024-07-09] MEDS: MORPHINE SULFATE 4 MG/ML SYRINGE IV STA (06:35)
== END 2024-07-09 06:45 | disposition home or self-care (01) ==
LOC: EC 01:02
DX: N93.8 Other specified abnormal uterine and vaginal bleeding (principal); Z87.891 Personal history of nicotine dependence; Z88.0 Allergy status to penicillin; Z91.048 Other nonmedicinal substance allergy status
CPT/HCPCS: 36415; 86900; 86901; 80053; 85025; 85610; 85730; 86850; 99284; 96374; 96375; 96376; 96361 ×2; J2270